=== PATIENT | male | born 1990 | race Caucasian/White ===

== ENCOUNTER 2018-05-08 08:26 | Observation (INO) | payer BC, OTHER, SELFPAY ==
[2018-05-08 09:29] LABS: Urine Blood NEGATIVE (NEG); Urine Glucose NEGATIVE (NEG); Urine Protein NEGATIVE (NEG)
[2018-05-08 09:38] LABS: Absolute Lymphocytes (CBC) 2.7 K/uL (0.7-4.9); Absolute Neutrophil 8.4 K/uL (1.8-8.0); Basophils % 0.3 % (0-1.3); Eosinophils % 1.6 % (0-4.4); Hematocrit 45.2 % (39.6-49.0); Lymphocytes % 21.9 % (15.3-44.8); MCH 29.9 pg (27.0-35.0); MCV 86.9 fL (80-100); MPV 8.5 fL (7.6-11.3); Monocytes % 8.4 % (3.3-12.3)
[2018-05-08] MEDS ORDERED: METHYLPREDNISOLONE 125 MG INJ ONE (09:47)
[2018-05-08 09:56] LABS: C-Reactive Protein 19.5 mg/L (<3.00); Potassium 4.1 mmol/L (3.5-5.1)
--- NOTE | 2018-05-08 10:50 | RAD REPORT ---
EXAM DESCRIPTION: RAD - Chest Single View - 05/08/2018 9:22 am CLINICAL HISTORY: Fever COMPARISON: None. TECHNIQUE: AP portable chest image was obtained 0918 hours . FINDINGS: Lungs are clear. Heart and vasculature are normal. No measurable pleural effusion and no p neumothorax. No acute bony abnormality seen. No acute aortic findings suspected. IMPRESSION: No acute cardiopulmonary process.
--- NOTE | 2018-05-08 11:10 | EDPHYS ---
Physician Documentation [facility] Name: Mervin Vance Age: 28 yrs Sex: Male : 1990 Arrival Date: 05/08/2018 Time: 08:29 Bed 15 Private MD: None, None ED Physician Mina Montez HPI: 05/08 10:20 This 28 yrs old Male presents to ER via Wheelchair with complaints of Rash. rn 10:20 The patient's rash thought to be caused by an unknown cause. The rash is located on the rn right hand, left hand and right leg. The rash can be described as flat, macular. Onset: The symptoms/episode began/occurred 2 day(s) ago. Severity of symptoms: At their worst the symptoms were moderate in the emergency department the symptoms are unchanged. The patient has not experienced similar symptoms in the past. Reports had sinus infection 2 weeks ago, last couple of days has had rash to palms and extremities that are flat, itchy, now having joint problems, hurts to move wrists, right knee. + low grade fever. No sob/cough anymore. . Historical: - Allergies: 08:31 No Known Allergies; aa5 - Home Meds: 08:31 None [Active]; aa5 - PMHx: 08:31 None; aa5 - PSHx: 08:31 None; aa5 - Immunization history:: Adult Immunizations up to date. - Social history:: Smoking status: Patient uses tobacco products, chewing tobacco. - Ebola Screening: : No symptoms or risks identified at this time. - Family history:: not pertinent. - Hospitalizations: : No recent hospitalization is reported. ROS: 10:20 Constitutional: + fever, no chills Eyes: Negative for injury, pain, redness, and rn perinatal, Cardiovascular: Negative for chest pain, palpitations, and edema, Respiratory: Negative for shortness of breath, cough, wheezing, and pleuritic chest pain, Abdomen/GI: Negative for abdominal pain, nausea, vomiting, diarrhea, and constipation, MS/Extremity: Negative for injury and deformity, Skin: + rash Neuro: Negative for headache, weakness, numbness, tingling, and seizure. Exam: 10:20 Constitutional: This is a well developed, well nourished patient who is awake, alert, rn and in no acute distress. Head/Face: Normocephalic, atraumatic. Eyes: Pupils equal round and reactive to light, extra-ocular motions intact. Lids and lashes normal. Conjunctiva and sclera are non-icteric and not injected. Cornea within normal limits. Periorbital areas with no swelling, redness, or edema. ENT: MMM, no stridor, no oral lesions Cardiovascular: Regular rate and rhythm with a normal S1 and S2. No gallops, murmurs, or rubs. Normal PMI, no JVD. No pulse deficits. Respiratory: Lungs have equal breath sounds bilaterally, clear to auscultation and percussion. No rales, rhonchi or wheezes noted. No increased work of breathing, no retractions or nasal flaring. Abdomen/GI: soft, non-tender Skin: + macular flat blanching rash on bilateral palms, + excoriations bilateral upper and lower extremities, no urticaria, no petechiae MS/ Extremity: + painful ROM bilateral wrists and right knee without effusions Neuro: Awake and alert, GCS 15, oriented to person, place, time, and situation. Cranial nerves II-XII grossly intact. Motor strength 5/5 in all extremities. Sensory grossly intact. Cerebellar exam normal. Normal gait. Vital Signs: 08:31 BP 141 / 93; Pulse 82; Resp 16 S; Temp 99.2(O); Pulse Ox 95% on R/A; Weight 124.74 kg aa5 (R); Height 6 ft. 0 in. (182.88 cm) (R); 10:11 BP 118 / 84; Pulse 72; Resp 14; Pulse Ox 97% ; bp 11:28 BP 93 / 67; Pulse 83; Resp 14; Pulse Ox 95% ; bp 12:59 BP 131 / 80; Pulse 78; Resp 14; Pulse Ox 97% ; bp 08:31 Body Mass Index 37.30 (124.74 kg, 182.88 cm) aa5 MDM: 08:41 Patient medically screened. rn 11:07 Differential diagnosis: polyarticular arthritis, septicemia, endocarditis, reactive rn arthritis. Data reviewed: vital signs, nurses notes, lab test result(s), radiologic studies, and as a result, I will admit patient. Counseling: I had a detailed discussion with the patient and/or guardian regarding: the historical points, exam findings, and any diagnostic results supporting the discharge/admit diagnosis, lab results, radiology results, the need for further work-up and treatment in the hospital. Admission orders: after a detailed discussion of the patient's condition and case, the admit orders are written by me. ED course: Unclear etiology of rash, most likely reactive polyarticular arthritis, will admit to rule out septicemia and f/u blood cultures. . 05/08 08:54 Order name: CBC with Diff rn 05/08 08:54 Order name: Basic Metabolic Panel rn 05/08 08:54 Order name: ESR rn 05/08 08:54 Order name: CRP rn 05/08 08:54 Order name: Procalcitonin rn 05/08 08:54 Order name: Flu rn 05/08 08:54 Order name: Strep; Complete Time: 10:19 rn 05/08 08:54 Order name: Blood Culture Adult (2) rn 05/08 08:55 Order name: CBC with Automated Diff; Complete Time: 10:19 ED[facility] 05/08 08:55 Order name: Basic Metabolic Panel; Complete Time: 10:19 ED[facility] 05/08 08:55 Order name: Sedimentation Rate, Westergren; Complete Time: 10:19 ED[facility] 05/08 08:55 Order name: C-Reactive Protein; Complete Time: 10:19 [facility] 05/08 08:55 Order name: Procalcitonin; Complete Time: 10:19 [facility] 05/08 08:55 Order name: Influenza Screen (A ; Complete Time: 10:19 ED[facility] 05/08 09:17 Order name: Urine Dipstick--Ancillary (enter results); Complete Time: 09:33 05/08 09:59 Order name: Throat Culture [facility] 05/08 11:37 Order name: GUME IFA Screen w/Reflex [facility] 05/08 11:38 Order name: Hepatitis Panel,Acute ED[facility] 05/08 11:38 Order name: Miscellaneous Test Lab [facility] 05/08 11:38 Order name: Rheumatoid Factor [facility] 05/08 11:38 Order name: T4 Free [facility] 05/08 11:38 Order name: Thyroid Stimulating Hormone [facility] 05/08 11:38 Order name: Urinalysis [facility] 05/08 11:38 Order name: CBC with Automated Diff [facility] 05/08 11:38 Order name: CBC with Automated Diff [facility] 05/08 11:38 Order name: CBC with Automated Diff [facility] 05/08 11:38 Order name: Comprehensive Metabolic Panel [facility] 05/08 11:38 Order name: Comprehensive Metabolic Panel [facility] 05/08 11:38 Order name: Comprehensive Metabolic Panel [facility] 05/08 11:38 Order name: Magnesium [facility] 05/08 08:54 Order name: IV Start; Complete Time: 09:35 rn 05/08 08:54 Order name: Urine Dipstick-Ancillary (obtain specimen); Complete Time: 09:35 rn 05/08 08:54 Order name: XRAY Chest (1 view); Complete Time: 10:51 rn 05/08 11:37 Order name: CONS Physician Consult ED[facility] 05/08 11:37 Order name: Regular [facility] 05/08 11:37 Order name: Echo with Doppler [facility] 05/08 11:38 Order name: Magnesium [facility] 05/08 11:38 Order name: Magnesium [facility] Administered Medications: 09:40 Drug: SOLU-Medrol 125 mg Route: IVP; Site: right forearm; bp 11:00 Follow up: Response: No adverse reaction; Marked relief of symptoms bp Disposition: 05/08/18 11:09 Hospitalization ordered by Massimo Coronado for Inpatient Admission. Preliminary diagnosis are Rash and other nonspecific skin eruption, Polyarticular arthralgia. - Bed requested for Telemetry/MedSurg (Inpatient). - Status is Inpatient Admission. bp - Condition is Stable. - Problem is new. - Symptoms have improved. UTI on Admission? No Signatures: Dispatcher [employer] [facility] Mina Montez MD MD rn Calderon, Audri RN RN aa5 Heriberto Dunn RN RN bp Siri Franco Corrections: (The following items were deleted from the chart) 11:44 11:38 Blood Culture ordered. [facility] 12:57 11:09 Hospitalization Ordered by Massimo Coronado DO for Inpatient Admission. Preliminary eb diagnosis is Rash and other nonspecific skin eruption; Polyarticular arthralgia. Bed requested for Telemetry/MedSurg (Inpatient). Status is Inpatient Admission. Condition is Stable. Problem is new. Symptoms have improved. UTI on Admission? No. rn 13:37 12:57 05/08/2018 11:09 Hospitalization Ordered by Massimo Coronado DO for Inpatient bp Admission. Preliminary diagnosis is Rash and other nonspecific skin eruption; Polyarticular arthralgia. Bed requested for Telemetry/MedSurg (Inpatient). Status is Inpatient Admission. Condition is Stable. Problem is new. Symptoms have improved. UTI on Admission? No. eb
--- NOTE | 2018-05-08 11:10 | ER ---
Nurse's Notes [facility] Name: Mervin Vance Age: 28 yrs Sex: Male : 1990 Arrival Date: 05/08/2018 Time: 08:29 Bed 15 Private MD: None, None Diagnosis: Rash and other nonspecific skin eruption;Polyarticular arthralgia Presentation: 05/08 08:30 Presenting complaint: Patient states: "I got this rash that started on my hands and aa5 feet about 2 days ago and now it's spreading". Pt states "all my joints are hurting". 08:30 Transition of care: patient was not received from another setting of care. Onset of aa5 symptoms was April 2018. Risk Assessment: Do you want to hurt yourself or someone else? Patient reports no desire to harm self or others. Initial Sepsis Screen: Does the patient meet any 2 criteria? No. Patient's initial sepsis screen is negative. Does the patient have a suspected source of infection? No. Patient's initial sepsis screen is negative. Care prior to arrival: None. 08:30 Method Of Arrival: Wheelchair aa5 08:30 Acuity: TAMMIE 3 aa5 Triage Assessment: 08:56 General: Appears in no apparent distress. comfortable, Behavior is calm, cooperative, bp appropriate for age. Pain: Complains of pain in GENERALIZED. Historical: - Allergies: 08:31 No Known Allergies; aa5 - Home Meds: 08:31 None [Active]; aa5 - PMHx: 08:31 None; aa5 - PSHx: 08:31 None; aa5 - Immunization history:: Adult Immunizations up to date. - Social history:: Smoking status: Patient uses tobacco products, chewing tobacco. - Ebola Screening: : No symptoms or risks identified at this time. - Family history:: not pertinent. - Hospitalizations: : No recent hospitalization is reported. Screenin:33 Abuse screen: Denies threats or abuse. Denies injuries from another. Nutritional bp screening: No deficits noted. Tuberculosis screening: No symptoms or risk factors identified. Fall Risk None identified. Assessment: 08:30 General: Appears in no apparent distress. uncomfortable, slender, Behavior is calm, bp cooperative, appropriate for age. Pain: Complains of pain in GENERALIZED. Neuro: Level of Consciousness is awake, alert, obeys commands, Oriented to person, place, time, situation, Appropriate for age. Cardiovascular: No deficits noted. Respiratory: Airway is patent Respiratory effort is even, unlabored, Respiratory pattern is regular, symmetrical. GI: No signs and/or symptoms were reported involving the gastrointestinal system. : No signs and/or symptoms were reported regarding the genitourinary system. EENT: No deficits noted. Derm: Rash noted that is macular, urticaria. Musculoskeletal: Circulation, motion, and sensation intact. Range of motion: intact in all extremities. Vital Signs: 08:31 BP 141 / 93; Pulse 82; Resp 16 S; Temp 99.2(O); Pulse Ox 95% on R/A; Weight 124.74 kg aa5 (R); Height 6 ft. 0 in. (182.88 cm) (R); 10:11 BP 118 / 84; Pulse 72; Resp 14; Pulse Ox 97% ; bp 11:28 BP 93 / 67; Pulse 83; Resp 14; Pulse Ox 95% ; bp 12:59 BP 131 / 80; Pulse 78; Resp 14; Pulse Ox 97% ; bp 08:31 Body Mass Index 37.30 (124.74 kg, 182.88 cm) aa5 ED Course: 08:29 Patient arrived in ED. mr 08:29 None, None is Private Physician. mr 08:29 Arm band placed on. aa5 08:36 Heriberto Dunn, BENITO is Primary Nurse. bp 08:41 Mina Montez MD is Attending Physician. rn 08:42 Triage completed. aa5 09:00 Inserted saline lock: 20 gauge in right forearm, using aseptic technique. Blood bp collected. 09:21 X-ray completed. Portable x-ray completed in exam room. Patient tolerated procedure ls3 well. 09:22 XRAY Chest (1 view) In Process Unspecified. EDMS 09:33 Patient has correct armband on for positive identification. Bed in low position. Call bp light in reach. Side rails up X2. Adult w/ patient. 11:08 Massimo Coronado DO is Hospitalizing Provider. rn 13:25 No provider procedures requiring assistance completed. Patient admitted, IV remains in bp place. Administered Medications: 09:40 Drug: SOLU-Medrol 125 mg Route: IVP; Site: right forearm; bp 11:00 Follow up: Response: No adverse reaction; Marked relief of symptoms bp Outcome: 11:09 Decision to Hospitalize by Provider. rn 13:24 Admitted to Tele accompanied by tech, family with patient, via wheelchair, room 420, bp with chart, Report called to DIMAS LUCIO 13:24 Condition: stable 13:24 Instructed on the need for admit. 13:37 Patient left the ED. bp Signatures: Dispatcher [employer] ANISH HillBecky Melida, MD MD benito Enriquez Audri, RN RN aa5 Heriberto Dunn RN RN bp Celina Dickey ls3
[2018-05-08] MEDS ORDERED: IBUPROFEN 400 MG TAB PO PRN (11:24)
[2018-05-08] MEDS ORDERED: ACETAMINOPHEN 500 MG TAB PO PRN (11:24)
[2018-05-08] MEDS ORDERED: ONDANSETRON 4 MG/2 ML VIAL IV PRN (11:24)
[2018-05-08] MEDS ORDERED: ALPRAZOLAM 0.25 MG TABLET PO PRN (11:24)
[2018-05-08] MEDS ORDERED: TRAMADOL HCL 50 MG TAB PO PRN (11:24)
[2018-05-08 12:37] LABS: Thyroid Stimulating Hormone 1.46 uIU/mL (0.360-3.740)
[2018-05-08] MEDS: KETOROLAC 30 MG/ML INJ IV PRN ×2 (14:02→21:59)
[2018-05-08] MEDS: NA CHLORIDE 0.9% 1,000 ML IV SCH ×2 (14:03→21:59)
[2018-05-08] MEDS: FAMOTIDINE 20 MG TAB PO SCH ×2 (14:03→20:24)
[2018-05-08] MEDS: CETIRIZINE HCL 5 MG TABLET PO SCH (14:03)
[2018-05-08 14:37] VITALS: BMI 32.6
--- NOTE | 2018-05-08 15:41 | P.HP ---
Certification for Inpatient Patient admitted to: Inpatient With expected LOS: >2 Midnights Patient will require the following post-hospital care: None Practitioner: I am a practitioner with admitting privileges, knowledge of patient current condition, hospital course, and medical plan of care. Services: Services provided to patient in accordance with Admission requirements found in Title 42 Section 412.3 of the Code of Federal Regulations Patient History Date of Service: 05/08/18 Primary Care Provider: None Reason for admission: Rash with joint pain History of Present Illness: 28-year-old male presented emergency room with a rash to his hands and polyarthritis. Patient reports last night having some joint pain to the left wrist region. He denied any chills, fever, nausea or vomiting. He denied any headaches, lightheadedness or chest pain. He had some mild shortness of breath especially with exertion. This morning he noted pain to multiple areas of joints including the right knee: left 5th digit and thumb; right 5th digit, thumb, and ring finger. Patient reports having a sinus infection about 2-3 weeks ago. He was given steroids and Augmentin. Patient reports no distant travel. He had gone [place] this past [place] and did some camping. In the ER patient was evaluated. Strep test negative. Influenza test negative. Chest x-ray unremarkable. Pro calcitonin negative. CRP elevated. White count 12.4, hemoglobin 1. Creatinine 1.1 with a GFR of 80. Blood cultures obtained. Patient admitted for further evaluation. When I saw the patient ER, he was not having any respiratory distress. Patient had a rash to his palms of his hands. He had some reactive erythema up on scratching to multiple areas. Allergies No Known Allergies Allergy (Unverified 05/08/18 12:05) Home medications list reviewed: Yes - Past Medical/Surgical History Has patient received pneumonia vaccine in the past: No Diabetic: No Past Medical History: Patient denies medical history Past Surgical History: Patient denies surgical history Psychosocial/ Personal History: Patient is . He has 1 child. 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 - Family History Father -: Heart disease, Diabetes - Social History Smoking Status: Former smoker Alcohol use: Yes CD- Drugs: No Caffeine use: Yes Place of Residence: Home Review of Systems General: As per HPI Eyes: Unremarkable ENT: Unremarkable Respiratory: Shortness of Breath, SOB with Excertion, As per HPI Cardiovascular: Unremarkable Gastrointestinal: Unremarkable Genitourinary: Unremarkable Musculoskeletal: Hand Pain, Leg Pain, As per HPI Integumentary: Rash, Unremarkable Neurological: Unremarkable Lymphatics: Unremarkable Physical Examination - Vital Signs Temperature: 98.0 F Blood Pressure: 137/74 Pulse: 90 Respirations: 18 Pulse Ox (%): 97 - Physical Exam General: Alert, In no apparent distress, Oriented x3, Cooperative HEENT: Atraumatic, Normocephalic, PERRLA, Mucous membr. moist/pink Neck: Supple, No Thyromegaly Respiratory: Clear to auscultation bilaterally, Normal air movement Cardiovascular: Normal pulses, Regular rate/rhythm Gastrointestinal: Normal bowel sounds, Soft and benign, Non-distended, No tenderness, No masses, No rebound, No guarding Musculoskeletal: Other (Slight swelling to the right knee with pain. Multiple joints of the hand with pain. Ant bites noted to the feet bilateral. No open sores noted.) Integumentary: Other (Reactive allergic rash noted throughout the body. No target lesions noted.) Neurological: Normal speech, Normal strength at 5/5 x4 extr, Normal tone, Normal affect - Studies Laboratory Data (last 24 hrs) 05/08/18 09:15: Sodium 138, Potassium 4.1, BUN 9, Creatinine 1.10, Glucose 110 H 05/08/18 09:15: WBC 12.4 H, Hgb 15.6, Hct 45.2, Plt Count 333 Microbiology Data (last 24 hrs): 05/08/18 09:15 Nasopharnyx Influenza Type A Antigen Screen - Final 05/08/18 09:15 Nasopharnyx Influenza Type B Antigen Screen - Final 05/08/18 09:15 Throat Group A Streptococcus Rapid Screen - Final Assessment and Plan - Plan Impression: Rash of unknown etiology likely viral with polyarthritis Shortness of breath Plan: Rash of unknown etiology. Patient given IV steroids in the emergency room. Will continue with steroid medication. Provide medication for itching. This includes Zyrtec and Pepcid. Will monitor closely. Blood cultures obtained. Will send for GUME and rheumatoid factor. Will hold off on antibiotics at this time. Case discussed with infectious disease. Await further recommendations from infectious disease. Will continue monitor closely. Will monitor shortness of breath closely. Will need to rule out bacteremia. Discharge Plan: Home Plan to discharge in: 48 Hours - Advance Directives Does patient have a Living Will: No Does patient have a Durable POA for Healthcare: No Time Spent Managing Pts Care (In Minutes): 55
[2018-05-08] MEDS ORDERED: INFLUENZA VACCINE (for 3y+) 0.5 ML DOSE IMVAC ONE (16:00)
[2018-05-08] MEDS ORDERED: ENOXAPARIN 40 MG/0.4 ML SQ SCH (17:00)
--- NOTE | 2018-05-08 17:51 | ECHO ---
HEIGHT: 6 ft 0 in WEIGHT: 241 lb 0 oz DATE OF STUDY: 05/08/[address]: 2-DIMENSIONAL: YES M.MODE: YES DOPPLER: YES COLOR FLOW: YES TDS: NO PORTABLE: NO DEFINITY: NO BUBBLE STUDY: NO DIAGNOSIS: RASH, POLYARTHRITIS, SHORTNESS OF BREATH CARDIAC HISTORY: CATHERIZATION: NO SURGERY: NO PROSTHETIC VALVE: NO PACEMAKER: NO MEASUREMENTS (cm) DIASTOLIC (NORMALS) SYSTOLIC (NORMALS) IVSd 1.3 (0.6-1.2) LA Diam 3.9 (1.9-4.0) LVEF 61% LVIDd 4.3 (3.5-5.7) LVIDs 2.9 (2.0-3.5) %FS 33% LVPWd 1.3 (0.6-1.2) Ao Diam 3.2 (2.0-3.7) 2 DIMENSIONAL ASSESSMENT: RIGHT ATRIUM: NORMAL LEFT ATRIUM: NORMAL RIGHT VENTRICLE: NORMAL LEFT VENTRICLE: NORMAL TRICUSPID VALVE: NORMAL MITRAL VALVE: NORMAL PULMONIC VALVE: NORMAL AORTIC VALVE: NORMAL PERICARDIAL EFFUSION: NONE AORTIC ROOT: NORMAL LEFT VENTRICULAR WALL MOTION: NORMAL DOPPLER/COLOR FLOW: PHYSIOLOGICAL TRICUSPID REGURGITATION. NORMAL RIGHT VENTRICULAR SYSTOLIC PRESSURE. COMMENTS: NORMAL 2D ECHOCARDIOGRAM WITH DOPPLER. TECHNOLOGIST: LADONNA KIRK RDCS
[2018-05-08] MEDS: predniSONE 20 MG TAB PO SCH (20:24)
--- NOTE | 2018-05-08 20:47 | CON ---
History Of Present Illness: This is a 28-year-old male coming in with rash on his hands and polyarth ritis involving specially wrist, knee, and ankle regions. The patient is feeling much better today. Denies any headache, nausea, vomiting, chest pain, abdominal pain, constipation, or diarrhea. The [place] recently went to a festival, where he was in the midst of thousands of people, the [facility]. The patient's strep is negative. Influenza test is negative. Chest x-ray is negative. Procalcitonin is negative. White blood cell count was elevated. The patient has been started on sup portive medications including ibuprofen, Pepcid, Zyrtec, no antibiotics. Past Medical History: No past medical history. Social History: Tobacco positive. Alcohol positive. Family History: Noncontributory. Medications: See MARS for medication. Allergies: NO KNOWN DRUG ALLERGIES. Review of Systems: A 10-point review was performed. Physical Examination: General: This is a 28-year-old male, sitting in bed, not in any acute cardiopulmonary distress. Vital signs: Temperature 98, pulse 90, respirations 18, blood pressure 137/74. HEENT: Unremarkable. Neck: Supple. Lungs: Clear to auscultation. Heart: S1, S2. Regular. Abdomen: Soft, nontender. Bowel sounds positive. Extremities: Right knee tenderness noted. Multiple areas of erythematous epidermal elevation noted with no discharge and no open wounds. Laboratory Data: Shows WBC 12,000, hemoglobin 15, platelets are 333. Chemistry shows sodium 138, po tassium 4.1, chloride 106, bicarb 24, BUN 9, creatinine 1.1, glucose is 110. Micro data; blood cultu res are pending. Influenza is negative. Strep is negative. Assessment And Plan: Most likely viral syndrome with polyarthritis and dermatitis, mild leukocytosis . We will suggest to monitor the patient for another 24 hours without any antibiotic. Continue supp ortive care and Benadryl and increase fluids. We will follow the patient as needed. Thank you Dr. Coronado for consult. NF/MODL Voice ID: [id number] Report ID: [id number]
[2018-05-08 21:36] LABS: Rheumatoid Factor NEG (NEG)
[2018-05-09 06:34] LABS: Absolute Lymphocytes (CBC) 2.2 K/uL (0.7-4.9); Absolute Monocytes 1.5 K/uL (0.1-1.3); Absolute Neutrophil 15.5 K/uL (1.8-8.0); Basophils % 0.1 % (0-1.3); Hematocrit 41.1 % (39.6-49.0); Lymphocytes % 11.3 % (15.3-44.8); MCH 30.5 pg (27.0-35.0); MCV 87.5 fL (80-100); MPV 8.6 fL (7.6-11.3); Monocytes % 7.8 % (3.3-12.3); RBC Red Blood Cell Count 4.69 M/uL (4.33-5.43)
[2018-05-09 06:57] LABS: Albumin 3.3 g/dL (3.4-5.0); Bilirubin Total 0.4 mg/dL (0.2-1.0); Magnesium 2.4 mg/dL (1.8-2.4); Potassium 4.3 mmol/L (3.5-5.1); Protein, Total 7.1 g/dL (6.4-8.2)
[2018-05-09] MEDS: NA CHLORIDE 0.9% 1,000 ML IV SCH (08:17)
[2018-05-09] MEDS: predniSONE 20 MG TAB PO SCH (08:18)
[2018-05-09] MEDS: FAMOTIDINE 20 MG TAB PO SCH (08:18)
[2018-05-09] MEDS: CETIRIZINE HCL 5 MG TABLET PO SCH (08:18)
[2018-05-09 09:01] VITALS: O2SAT 99
[2018-05-09 12:12] VITALS: BP 117/59; TEMP 97.9
--- NOTE | 2018-05-09 12:36 | P.PN ---
Subjective Date of Service: 05/09/18 Primary Care Provider: None Chief Complaint: Rash with joint pain Subjective: Improving (Patient improved. No significant pain to the joints. Rash resolved.) Physical Examination - Vital Signs Temperature: 97.9 F Blood Pressure: 117/59 Pulse: 80 Respirations: 18 Pulse Ox (%): 99 - Physical Exam General: Alert, In no apparent distress, Oriented x3, Cooperative HEENT: Atraumatic Neck: Supple Respiratory: Clear to auscultation bilaterally, Normal air movement Cardiovascular: Normal pulses, Regular rate/rhythm Gastrointestinal: Normal bowel sounds, Soft and benign, Non-distended, No tenderness, No masses, No rebound, No guarding Musculoskeletal: Other (Joint pains significantly improved.) Integumentary: Other (No rashes noted today.) Neurological: Normal speech, Normal strength at 5/5 x4 extr, Normal tone, Normal affect - Studies Microbiology Data (last 24 hrs): 05/08/18 09:15 Nasopharnyx Influenza Type A Antigen Screen - Final 05/08/18 09:15 Nasopharnyx Influenza Type B Antigen Screen - Final 05/08/18 09:15 Throat Group A Streptococcus Rapid Screen - Final Medications List Reviewed: Yes Assessment & Plan Discharge Plan: Home Plan to discharge in: 24 Hours Physician Review Additional Text: Impression: Rash of unknown etiology with polyarthritis likely viral versus inflammatory response Leukocytosis with noted Blood culture 1/2 positive for Gram positive rods, possible bacteremia Shortness of breath, resolved Plan: Patient significantly improved. Rash appears resolved. Patient seemed to after spotted well to oral steroids. Polyarthritis almost completely resolved. Case discussed with infectious disease yesterday. Suspect viral etiology with possible inflammatory response. Today white count elevated with 1/2 blood cultures positive for Gram positive rods. Will continue monitor closely. Await final results of blood cultures as the patient may have early bacteremia. Echocardiogram unremarkable, noted tricuspid regurgitation-physiologic. Shortness of breath resolved. Will consider discharge later today or tomorrow. Will continue to reassess. Time Spent Managing Pts Care (In Minutes): 55
--- NOTE | 2018-05-09 15:20 | P.DS ---
Admission Date: 05/08/18 Discharge Date: 05/09/18 Primary Care Provider: None Disposition: ROUTINE DISCHARGE Discharge Condition: GOOD Reason for Admission: Rash with joint pain Consultations: Infectious Disease:-Dr. Baires Procedures: Echocardiogram: Ejection fraction-61% LEFT VENTRICULAR WALL MOTION: NORMAL DOPPLER/COLOR FLOW: PHYSIOLOGICAL TRICUSPID REGURGITATION. NORMAL RIGHT VENTRICULAR SYSTOLIC PRESSURE. COMMENTS: NORMAL 2D ECHOCARDIOGRAM WITH DOPPLER. Medical problem list: Rash of unknown etiology with polyarthritis likely viral versus inflammatory response Leukocytosis with noted Blood culture 1/2 positive for Gram positive rods, likely a contaminant Shortness of breath, resolved Allergic rhinitis Obesity, BMI 32.7 Brief History of Present Illness: 28-year-old male presented emergency room with a rash to his hands and polyarthritis. Patient reports last night having some joint pain to the left wrist region. He denied any chills, fever, nausea or vomiting. He denied any headaches, lightheadedness or chest pain. He had some mild shortness of breath especially with exertion. This morning he noted pain to multiple areas of joints including the right knee: left 5th digit and thumb; right 5th digit, thumb, and ring finger. Patient reports having a sinus infection about 2-3 weeks ago. He was given steroids and Augmentin. Patient reports no distant travel. He had gone to the [employer] [place] this past weekend and did some camping. In the ER patient was evaluated. Strep test negative. Influenza test negative. Chest x-ray unremarkable. Pro calcitonin negative. CRP elevated. White count 12.4, hemoglobin 1. Creatinine 1.1 with a GFR of 80. Blood cultures obtained. Patient admitted for further evaluation. When I saw the patient ER, he was not having any respiratory distress. Patient had a rash to his palms of his hands. He had some reactive erythema up on scratching to multiple areas. Hospital Course: Patient presented with a rash of unknown etiology with polyarthritis. Patient was evaluated by infectious disease. Patient responded well to steroids and therapy. Blood culture positive 1/2. This is likely a contaminant. Patient has done well without any further abnormalities. Rash has resolved. Polyarthritis also resolved. Echocardiogram unremarkable. Rash and polyarthritis likely viral in nature. Inflammatory response also likely. Leukocytosis noted. Likely from steroids. Patient clinically stable. Patient will be discharged home. Patient will continue with prednisone 20 mg 1 pill twice daily for 5 days then 1 pill once daily for 5 days. Patient will continue with Zyrtec 10 mg 1 pill daily and Pepcid 20 mg 1 pill twice daily for 1 more month. Patient will need to establish care with a PCP to follow up this hospitalization. Patient will need a follow up on lab-hepatitis panel, GUME with his PCP. Patient likely has underlying her allergic rhinitis. Patient will continue with Zyrtec 10 mg daily. Patient with BMI 32.7. Lifestyle modification education will be provided. Vital Signs/Physical Exam: Temp Pulse Resp BP Pulse Ox 97.9 F 80 18 117/59 L 99 05/09/18 12:36 05/09/18 12:36 05/09/18 12:36 05/09/18 12:36 05/09/18 12:36 General: Alert, In no apparent distress, Oriented x3, Cooperative HEENT: Atraumatic Neck: Supple Respiratory: Clear to auscultation bilaterally, Normal air movement Cardiovascular: Normal pulses, Regular rate/rhythm Gastrointestinal: Normal bowel sounds, Soft and benign, Non-distended, No tenderness, No masses, No rebound, No guarding Musculoskeletal: No erythema, No tenderness, No warmth Integumentary: No tenderness/swelling, No erythema, No warmth, No cyanosis Neurological: Normal speech, Normal strength at 5/5 x4 extr, Normal tone, Normal affect Laboratory Data at Discharge: WBC 19.1 K/uL (4.3-10.9) H D 05/09/18 05:28 Hgb 14.3 g/dL (13.6-17.9) 05/09/18 05:28 Hct 41.1 % (39.6-49.0) 05/09/18 05:28 Plt Count 347 K/uL (152-406) 05/09/18 05:28 Sodium 140 mmol/L (136-145) 05/09/18 05:28 Potassium 4.3 mmol/L (3.5-5.1) 05/09/18 05:28 BUN 12 mg/dL (7-18) 05/09/18 05:28 Creatinine 1.10 mg/dL (0.55-1.3) 05/09/18 05:28 Glucose 112 mg/dL (74-106) H 05/09/18 05:28 Magnesium 2.4 mg/dL (1.8-2.4) 05/09/18 05:28 Total Bilirubin 0.4 mg/dL (0.2-1.0) 05/09/18 05:28 AST 15 U/L (15-37) 05/09/18 05:28 ALT 37 U/L (12-78) 05/09/18 05:28 Alkaline Phosphatase 67 U/L (45-117) 05/09/18 05:28 Home Medications: Cetirizine HCl [Zyrtec] 10 mg PO DAILY #30 tablet 05/09/18 RX: Famotidine [Pepcid*] 20 mg PO BID #60 tab 05/09/18 RX: predniSONE [Prednisone*] 20 mg PO SEECOM #15 tab 05/09/18 New Medications: Cetirizine HCl [Zyrtec] 10 mg PO DAILY #30 tablet RX: Famotidine [Pepcid*] 20 mg PO BID #60 tab RX: predniSONE [Prednisone*] 20 mg PO SEECOM #15 tab Patient Discharge Instructions: 1. Patient will need to follow up with a PCP to establish care and follow up this hospitalization. 2. Patient presented with a rash of unknown etiology with polyarthritis. Patient was evaluated by infectious disease. Patient responded well to steroids and therapy. Blood culture positive 1/. This is likely a contaminant. Patient has done well without any further abnormalities. Rash has resolved. Polyarthritis also resolved. Echocardiogram unremarkable. Rash and polyarthritis likely viral in nature. Inflammatory response also likely. Patient clinically stable. Patient will be discharged home. Patient will continue with prednisone 20 mg 1 pill twice daily for 5 days then 1 pill once daily for 5 days. Patient will continue with Zyrtec 10 mg 1 pill daily and Pepcid 20 mg 1 pill twice daily for 1 more month. Patient will need to establish care with a PCP to follow up this hospitalization. Patient will need a follow up on lab-hepatitis panel, GUME with his PCP. 3. Patient likely has underlying her allergic rhinitis. Patient will continue with Zyrtec 10 mg daily. 4. Lifestyle modification education will be provided. Diet: AHA Activity: Ad vanessa Time spent managing pt's care (in minutes): 55
[2018-05-10 18:29] LABS: HBsAG Nonreactive (Nonreactive); Hepatitis A IgM Antibody Nonreactive
== END 2018-05-09 17:18 | disposition home or self-care (01) ==
LOC: ER 08:26 → ERHOLD 11:21 → INTOOBSV 11:21 → 4TH 13:29
PROVIDERS: ADMIT Family Medicine; ATTEND Family Medicine
DX: R21 Rash and other nonspecific skin eruption (principal); M13.0 Polyarthritis, unspecified; D72.829 Elevated white blood cell count, unspecified; J30.9 Allergic rhinitis, unspecified; E66.9 Obesity, unspecified; Z68.32 Body mass index [BMI] 32.0-32.9, adult; Z87.891 Personal history of nicotine dependence
CPT/HCPCS: 36415; 71045; 80048; 80053; 80074; 81003; 83735; 84145; 84439; 84443; 85025; 85652; 86038; 86140; 86430; 87040; 87070; 87081; 87205; 87804; 93306; 96374; 99285; G0378; J1650; J2930; J7030; J7512

== ENCOUNTER 2018-05-10 13:07 | Observation (INO) | payer SELFPAY ==
[2018-05-10] MEDS ORDERED: KETOROLAC 30 MG/ML INJ ONE ×2 (14:32→14:50)
[2018-05-10] MEDS ORDERED: NA CHLORIDE 0.9% 1,000 ML ONE (14:55)
[2018-05-10 15:12] LABS: Protime INR 0.97
[2018-05-10 15:14] LABS: Absolute Lymphocytes (CBC) 1.2 K/uL (0.7-4.9); Absolute Monocytes 0.8 K/uL (0.1-1.3); Absolute Neutrophil 11.6 K/uL (1.8-8.0); Basophils % 0.1 % (0-1.3); Eosinophils % 0.4 % (0-4.4); Hematocrit 39.6 % (39.6-49.0); MCH 29.9 pg (27.0-35.0); MCV 88.1 fL (80-100); MPV 8.6 fL (7.6-11.3); Monocytes % 5.6 % (3.3-12.3); RBC Red Blood Cell Count 4.49 M/uL (4.33-5.43)
[2018-05-10] MEDS ORDERED: INSULIN -REGULAR HUMAN 50 UNIT/0.5 ML ML ONE (15:35)
[2018-05-10] MEDS ORDERED: D50W 25 GM/50 ML SYRINGE IV ONE (15:36)
[2018-05-10] MEDS ORDERED: SOD POLYSTYREN SUL 15 GM/60 ML UCUP ONE (15:36)
[2018-05-10 15:39] LABS: ALT/SGPT 42 U/L (12-78); AST/SGOT 17 U/L (15-37); Albumin 3.4 g/dL (3.4-5.0); Alkaline Phosphatase 62 U/L (45-117); BUN Blood Urea Nitrogen 13 mg/dL (7-18); Bicarbonate 26 mmol/L (21-32); Bilirubin Direct 0.1 mg/dL (0-0.2); Bilirubin Total 0.3 mg/dL (0.2-1.0); CKMB Creatine Kinase MB < 1.0 ng/mL (0.3-3.6); Creatine Phosphokinase 57 U/L (39-308); Glucose Level 151 mg/dL (74-106); Protein, Total 7.2 g/dL (6.4-8.2); Sodium Level 140 mmol/L (136-145); Troponin (Emerg Dept Use Only) < 0.02 ng/mL (0.0-0.045)
[2018-05-10] MEDS ORDERED: MORPHINE 4 MG/ML SYR ONE ×2 (15:52→17:24)
[2018-05-10 15:57] LABS: Urine Bacteria NONE SEEN /HPF (NONE SEEN); Urine Culture Reflex Order NOT NEEDED; Urine RBC NONE SEEN /HPF (NONE SEEN)
[2018-05-10] MEDS ORDERED: ONDANSETRON 4 MG/2 ML VIAL ONE (15:57)
[2018-05-10 16:24] LABS: Urine Blood NEGATIVE (NEG); Urine Glucose NEGATIVE (NEG); Urine Protein NEGATIVE (NEG); Urine pH 6.5 (5.0-7.0)
--- NOTE | 2018-05-10 17:05 | RAD REPORT ---
EXAM DESCRIPTION: CT - Abdomen Pelvis W Contrast - 05/10/2018 4:44 pm CLINICAL HISTORY: Abdominal pain/ right lower quadrant pain. COMPARISON: none. TECHNIQUE: Computed axial tomography of the abdomen pelvis was obtained. 100 cc Isovue-300 was admin istered intravenously. Oral contrast was not requested which limits evaluation of bowel. All CT scans are performed using dose optimization technique as appropriate and may include automated exposure control or mA/KV adjustment according to patient size. FINDINGS: The liver, spleen, pancreas, adrenal and kidneys appear unremarkable. There is no evidence of diverticulitis. The appendix is normal 1 IMPRESSION: No acute abnormality is displayed.
--- NOTE | 2018-05-10 17:07 | RAD REPORT ---
EXAM DESCRIPTION: RAD - Hip Right 2 View - 05/10/2018 4:35 pm CLINICAL HISTORY: Right hip pain FINDINGS: No fracture or dislocation is seen. No bone or joint abnormality
--- NOTE | 2018-05-10 17:07 | RAD REPORT ---
EXAM DESCRIPTION: RAD - Pelvis - 05/10/2018 4:34 pm CLINICAL HISTORY: Right hip pain FINDINGS: No fracture or dislocation is seen. No bone or joint abnormality
[2018-05-10] MEDS ORDERED: ONDANSETRON 4 MG/2 ML VIAL IV PRN (17:53)
[2018-05-10] MEDS ORDERED: ACETAMINOPHEN 500 MG TAB PO PRN (17:53)
--- NOTE | 2018-05-10 18:05 | P.HP ---
Certification for Inpatient Patient admitted to: Observation With expected LOS: <2 Midnights Patient will require the following post-hospital care: None Practitioner: I am a practitioner with admitting privileges, knowledge of patient current condition, hospital course, and medical plan of care. Services: Services provided to patient in accordance with Admission requirements found in Title 42 Section 412.3 of the Code of Federal Regulations Patient History Date of Service: 05/10/18 Primary Care Provider: Dr. Parker Reason for admission: RLQ abdominal pain, polyarthritis, myalgias History of Present Illness: 28 yo CM who was discharged yesterday after he was evaluated for a nonspecific rash and polyarthritis. He was seen by Infectious disease. His condition improved with steroids. Viral illness was suspected with inflammatory response. His polyarthritis to the hands, knee and feet resolved. His Procalcitonin, ESR were normal. His CXR and ECHO was also normal. UA was normal as well. Rheumatoid factor was also normal. He desired to go home yesterday while waiting on blood culture which was positive but thought to have been a contaminant. His symptoms have resolved. He was sent home with Prednisone, Zyrtec and Pepcid. Today he reported RLQ abdominal pain with radiation of pain to the right groin region. He also reported some myalgias mainly to the right thigh. He has some mild pain to the joints of the hands. No fever, chills, nausea or vomiting was noted. No diarrhea or constipation was noted. No SOB or chest pain. He was evaluated in the ER which included CT scan of the AB/Pelvis, x-rays of the Hip and Pelvis. All were normal. His WBC count was improved from his recent hospitalization. His ESR was increased from before. His CRP improved. Due to the unusual symptoms, he will be admitted for further evaluation. Allergies No Known Allergies Allergy (Unverified 05/08/18 12:05) Home medications list reviewed: Yes Home Medications: Cetirizine HCl [Zyrtec] 10 mg PO DAILY #30 tablet 05/09/18 Famotidine [Pepcid*] 20 mg PO BID #60 tab 05/09/18 predniSONE [Prednisone*] 20 mg PO SEECOM #15 tab 05/09/18 - Past Medical/Surgical History Diabetic: No -: GERD -: Allergic rhinitis -: Genital warts -: Obesity Past Surgical History: Patient denies surgical history Psychosocial/ Personal History: Patient is . He has 1 child. 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 - Family History Father -: Heart disease, Diabetes - Social History Smoking Status: Never smoker Alcohol use: Yes CD- Drugs: No Caffeine use: Yes Place of Residence: Home Review of Systems General: Weakness, Malaise, As per HPI Eyes: Unremarkable ENT: Unremarkable Respiratory: Unremarkable Cardiovascular: Unremarkable Gastrointestinal: Abdominal Pain, As per HPI Genitourinary: Unremarkable Musculoskeletal: Hand Pain, Leg Pain, As per HPI Integumentary: Unremarkable Neurological: Weakness, As per HPI Lymphatics: Unremarkable Physical Examination - Physical Exam General: Alert, In no apparent distress, Oriented x3, Cooperative HEENT: Atraumatic, Normocephalic, PERRLA, Mucous membr. moist/pink, EOMI Neck: Supple, No Thyromegaly, Without JVD or thyroid abnormality Respiratory: Clear to auscultation bilaterally, Normal air movement Cardiovascular: Normal pulses, Regular rate/rhythm Gastrointestinal: Normal bowel sounds, Soft and benign, Non-distended, No masses , No rebound, No guarding, Tenderness (Pain to deep palpation to the RLQ. ) Musculoskeletal: No warmth, Other (Pain with motion of the hip with external rotation) Integumentary: No rashes, Other (There is a genital wart noted to the pelvic region. No target lesions. No dermatographia that he had in his prior admission. ) Neurological: Normal speech, Normal strength at 5/5 x4 extr, Normal tone, Normal affect External genitalia: No edema, Other (Genital wart noted. ) - Studies Laboratory Data (last 24 hrs) 05/10/18 14:38: PT 11.5, INR 0.97, APTT 30.3 05/10/18 14:38: WBC 13.6 H D, Hgb 13.4 L, Hct 39.6, Plt Count 339 05/10/18 14:38: Sodium 140, Potassium 4.0, BUN 13, Creatinine 1.20, Glucose 151 H, Total Bilirubin 0.3, AST 17, ALT 42, Alkaline Phosphatase 62 Assessment and Plan - Plan Impression: Right lower quadrant abdominal pain Right thigh myalgia Migrating polyarthritis Genital wart Recent blood culture positive 1/2 for gram positive rods Elevated ESR and CRP Obesity GERD Plan: Patient will be admitted for closely monitoring. Await blood cultures results. Will repeat blood cultures. Will sent urine for culture and for GC/Chlamydia. Will send for Lyme Antibody. Will start IV Doxycycline. Will continue with Prednisone, Zyrtec and Pepcid. Will provide medication for pain. Will start IV fluids. Will consult Surgery to further assess Abdominal pain and myalgias. Etiology of findings unknown. Recheck lab. Will discuss with Infectious disease again and Surgery. Genital wart can be addressed as outpatient with Dermatology or Urology. Discharge Plan: Home Plan to discharge in: 48 Hours - Advance Directives Does patient have a Living Will: No Does patient have a Durable POA for Healthcare: No - Code Status/Comfort Care Code Status Assessed: Yes (Patient is full code) Time Spent Managing Pts Care (In Minutes): 55
--- NOTE | 2018-05-10 18:05 | ER ---
Nurse's Notes [facility] Name: Mervin Vance Age: 28 yrs Sex: Male : 1990 Arrival Date: 05/10/2018 Time: 13:10 Bed 7 Private MD: None, None Diagnosis: Lower abdominal pain, unspecified-Intractable Presentation: 05/10 13:16 Presenting complaint: Patient states: I had joint pain, fever, and rash 3 days ago, was la1 admitted, felt better went home, and woke up today with much joint pain. Transition of care: patient was not received from another setting of care. Onset of symptoms was May 10, 2018. Risk Assessment: Do you want to hurt yourself or someone else? Patient reports no desire to harm self or others. Initial Sepsis Screen: Does the patient meet any 2 criteria? No. Patient's initial sepsis screen is negative. Does the patient have a suspected source of infection? No. Patient's initial sepsis screen is negative. Care prior to arrival: None. 13:16 Method Of Arrival: Ambulatory la1 13:16 Acuity: TAMMIE 3 la1 Historical: - Allergies: 13:17 No Known Allergies; la1 - Home Meds: 13:17 None [Active]; la1 - PMHx: 13:17 None; la1 - PSHx: 13:17 None; la1 - Immunization history:: Adult Immunizations up to date. - Social history:: Smoking status: Patient/guardian denies using tobacco. - Ebola Screening: : No symptoms or risks identified at this time. Screenin:55 Abuse screen: Denies threats or abuse. Denies injuries from another. Nutritional ph screening: No deficits noted. Tuberculosis screening: No symptoms or risk factors identified. Fall Risk None identified. Assessment: 14:00 General: Appears in no apparent distress. uncomfortable, well groomed, Behavior is ph calm, cooperative, appropriate for age, Denies fever. Pain: Complains of pain in joints of R arm and hand, joints of L arm and hand, and R hip. Neuro: Level of Consciousness is awake, alert, obeys commands, Oriented to person, place, time, situation. 14:00 Cardiovascular: Denies chest pain, nausea, shortness of breath, Capillary refill < 3 ph seconds in bilateral fingers Patient's skin is warm and dry. Respiratory: Airway is patent Respiratory effort is even, unlabored, Respiratory pattern is regular, symmetrical, Denies cough, shortness of breath. GI: No signs and/or symptoms were reported involving the gastrointestinal system. Derm: Skin is intact, is healthy with good turgor, Skin is pink, warm \T\ dry. Musculoskeletal: Circulation, motion, and sensation intact. Range of motion: intact in all extremities. 14:55 Reassessment: Patient appears in no apparent distress at this time. Patient and/or ph family updated on plan of care and expected duration. Pain level reassessed. Patient is alert, oriented x 3, equal unlabored respirations, skin warm/dry/pink. Pt taken to radiology via wheelchair. 16:00 Reassessment: Patient appears in no apparent distress at this time. Patient and/or ph family updated on plan of care and expected duration. Pain level reassessed. Patient is alert, oriented x 3, equal unlabored respirations, skin warm/dry/pink. Pt returned from radiology, states that pain has not improved after pain meds, ERP notified, see MAR. 17:30 Reassessment: Patient appears in no apparent distress at this time. Patient and/or ph family updated on plan of care and expected duration. Pain level reassessed. Patient is alert, oriented x 3, equal unlabored respirations, skin warm/dry/pink. Pt reports that pain has not improved after IV morphine, ERP notified, see MAR. 18:30 Reassessment: Patient appears in no apparent distress at this time. Patient and/or ph family updated on plan of care and expected duration. Pain level reassessed. Patient is alert, oriented x 3, equal unlabored respirations, skin warm/dry/pink. Pt resting quietly at this time, continues to c/o pain and stiffness in joints, VSS, awaiting room assignment. 19:10 General: Appears in no apparent distress. uncomfortable, well groomed, Behavior is rr5 calm, cooperative, appropriate for age. 19:10 Pain: Complains of pain in right arm joint area Pain does not radiate. Pain currently rr5 is 8 out of 10 on a pain scale. Quality of pain is described as aching, Pain began 2-3 days ago. Is intermittent. Neuro: Level of Consciousness is awake, alert, obeys commands, Oriented to person, place, time, situation. Cardiovascular: Denies chest pain, nausea, shortness of breath, Capillary refill < 3 seconds Patient's skin is warm and dry. Respiratory: Airway is patent Respiratory effort is even, unlabored, Respiratory pattern is regular, symmetrical. GI: No signs and/or symptoms were reported involving the gastrointestinal system. : No signs and/or symptoms were reported regarding the genitourinary system. EENT: No signs and/or symptoms were reported regarding the EENT system. Derm: Skin is intact, is healthy with good turgor, Skin is pink, warm \T\ dry. Musculoskeletal: Circulation, motion, and sensation intact. Range of motion: intact in all extremities. Vital Signs: 13:17 BP 157 / 122; Pulse 90; Resp 16; Temp 97.6(TE); Pulse Ox 98% on R/A; Weight 109.32 kg; la1 Height 6 ft. 0 in. (182.88 cm); 15:00 BP 121 / 71; Pulse 74; Resp 18; Pulse Ox 99% on R/A; Pain 8/10; ph 16:00 BP 125 / 77; Pulse 69; Resp 16; Pulse Ox 97% on R/A; ph 17:00 BP 116 / 71; Pulse 64; Resp 18; Pulse Ox 97% on R/A; Pain 8/10; ph 17:42 BP 113 / 64; Pulse 60; Resp 18; Pulse Ox 98% on R/A; ph 18:49 BP 119 / 68; Pulse 66; Resp 18; Pulse Ox 98% on R/A; ph 19:02 BP 128 / 79; Pulse 60; Resp 18; Pulse Ox 99% on R/A; ea 13:17 Body Mass Index 32.69 (109.32 kg, 182.88 cm) la1 ED Course: 13:10 Patient arrived in ED. sb2 13:11 None, None is Private Physician. sb2 13:17 Triage completed. la1 13:17 Arm band placed on left wrist. la1 13:43 Veronica Zee, KHADIJAH is Primary Nurse. ph 14:00 Juan A Rudd PA is PHCP. cp 14:00 Santo De La Rosa MD is Attending Physician. cp 14:26 Inserted saline lock: 20 gauge in right antecubital area, using aseptic technique. dh3 14:38 Initial lab(s) drawn, by me, sent to lab. dh3 14:53 First set of blood cultures drawn by me, by venipuncture 23G to left forearm. dh3 14:55 Patient has correct armband on for positive identification. Placed in gown. Bed in low ph position. Call light in reach. Side rails up X 1. Pulse ox on. NIBP on. Warm blanket given. 15:20 EKG done, by ED staff, reviewed by Juan A HENLEY. dh3 15:24 Second set of blood cultures drawn by me, by venipuncture 23G to left hand. dh3 15:46 Urine collected: clean catch specimen, clear. dh3 16:35 Pelvis XRAY In Process Unspecified. EDMS 16:35 XRAY Hip RIGHT 2 view In Process Unspecified. EDMS 16:40 CT completed. Patient moved to CT via wheelchair. Patient moved back from CT. cw1 16:45 CT Abd/Pelvis - W/Contrast In Process Unspecified. EDMS 18:03 Massimo Coronado DO is Hospitalizing Provider. cp 18:49 No provider procedures requiring assistance completed. Patient admitted, IV remains in ph place. 18:56 add on labs drawn by me and sent to lab. dh3 19:20 Inserted saline lock: Patient admitted, IV remains in place. intact. rr5 Administered Medications: 14:28 Drug: TORadol 30 mg Route: IVP; Site: right antecubital; hb 15:00 Follow up: Response: No adverse reaction; Pain is unchanged, physician notified ph 15:15 Drug: NS 0.9% 1000 ml Route: IV; Rate: 1 bolus; Site: right antecubital; ph 18:59 Follow up: Response: No adverse reaction; IV Status: Completed infusion ph 17:06 Drug: morphine 4 mg Route: IVP; Site: left antecubital; ph 17:30 Follow up: Response: No adverse reaction; Pain is unchanged, physician notified ph 17:29 Drug: morphine 4 mg Route: IVP; Site: right antecubital; ph 18:39 Follow up: Response: No adverse reaction; Pain is unchanged, physician notified ph Outcome: 18:04 Decision to Hospitalize by Provider. cp 19:19 Admitted to Med/surg family with patient, via wheelchair. rr5 19:19 Condition: stable 19:19 Instructed on the need for admit. 19:33 Admitted to Med/surg family with patient, via wheelchair, Report called to roxie LUCIO rr5 19:47 Patient left the ED. rr5 Signatures: Dispatcher [employer] EDRadha Kaba cw1 [place], RN RN [email or web address] Veronica Zee RN RN ph Juan A Rudd PA PA cp Baxter, Heather, RN KHADIJAH [facility] Roxie Aguilar RN RN ea [place], Sheri [facility] Narendra Roberts RN RN rr5 Corrections: (The following items were deleted from the chart) 17:30 17:29 morphine 4 mg IVP in left antecubital ph ph 19:44 19:33 Admitted to Med/surg family with patient, via stretcher, Report called to roxie yee RN rr5 19:45 19:19 Admitted to Med/surg family with patient, via stretcher, rr5 rr5
--- NOTE | 2018-05-10 18:05 | EDPHYS ---
Physician Documentation [facility] Name: Mervin Vance Age: 28 yrs Sex: Male : 1990 Arrival Date: 05/10/2018 Time: 13:10 Bed 7 Private MD: None, None ED Physician Santo De La Rosa HPI: 05/10 14:27 This 28 yrs old Male presents to ER via Ambulatory with complaints of JOINT cp PAIN. 14:28 The patient or guardian reports pain. sustained from unknown reason, There is no cp obvious deformity, The patient is able to ambulate with assistance. Patient is not able to bear weight. The complaints affect the right hip. Onset: The symptoms/episode began/occurred this morning. 14:28 Associated signs and symptoms: Pertinent positives: abdominal pain, Pertinent cp negatives: chest pain, diarrhea, dysuria, fever, vomiting. 14:28 The patient has been recently been admitted at [facility], was cp discharged earlier this week, for multiple joint pain, rash. Historical: - Allergies: 13:17 No Known Allergies; la1 - Home Meds: 13:17 None [Active]; la1 - PMHx: 13:17 None; la1 - PSHx: 13:17 None; la1 - Immunization history:: Adult Immunizations up to date. - Social history:: Smoking status: Patient/guardian denies using tobacco. - Ebola Screening: : No symptoms or risks identified at this time. ROS: 14:35 Constitutional: Negative for body aches, chills, fever, poor PO intake. cp 14:35 Eyes: Negative for injury, pain, redness, and discharge. cp 14:35 ENT: Negative for drainage from ear(s), ear pain, sore throat, difficulty swallowing, difficulty handling secretions. 14:35 Cardiovascular: Negative for chest pain, edema, palpitations. 14:35 Respiratory: Negative for cough, shortness of breath, wheezing. 14:35 Abdomen/GI: Positive for abdominal pain, of the right lower quadrant, Negative for vomiting, diarrhea, constipation. 14:35 Back: Negative for pain at rest, pain with movement, radiated pain. 14:35 : Negative for urinary symptoms, testicular pain 14:35 MS/extremity: Positive for decreased range of motion, pain, tenderness, of the right hip, Negative for injury or acute deformity, paresthesias. 14:35 Skin: Negative for cellulitis, rash. 14:35 Neuro: Negative for altered mental status, headache, weakness. 14:35 All other systems are negative. Exam: 14:40 Constitutional: The patient appears in no acute distress, alert, awake, cp non-diaphoretic, non-toxic, well developed, well nourished, uncomfortable. 14:40 Head/Face: Normocephalic, atraumatic. cp 14:40 Eyes: Periorbital structures: appear normal, Pupils: equal, round, and reactive to light and accomodation, Extraocular movements: intact throughout, Conjunctiva: normal, no exudate, no injection, Sclera: no appreciated abnormality, Lids and lashes: appear normal, bilaterally. 14:40 ENT: External ear(s): are unremarkable, Ear canal(s): are normal, clear, TM's: bulging, is not appreciated, bilaterally, dullness, bilaterally, erythema, is not appreciated, bilaterally, Nose: is normal, Mouth: Lips: moist, Oral mucosa: pink and intact, moist, Posterior pharynx: is normal, airway is patent, no erythema, no exudate. 14:40 Neck: ROM/movement: is normal, is supple, without pain, no range of motions limitations, no meningismus, no nuchal rigidity. 14:40 Chest/axilla: Inspection: normal, Palpation: is normal, no crepitus, no tenderness. 14:40 Cardiovascular: Rate: normal, Rhythm: regular, Heart sounds: murmur, not appreciated, Edema: is not appreciated. 14:40 Respiratory: the patient does not display signs of respiratory distress, Respirations: normal, no use of accessory muscles, no retractions, no splinting, no tachypnea, labored breathing, is not present, Breath sounds: are clear throughout, no decreased breath sounds, no stridor, no wheezing. 14:40 Abdomen/GI: Inspection: abdomen appears normal, Bowel sounds: active, all quadrants, Palpation: soft, in all quadrants, moderate abdominal tenderness, in the right lower quadrant, rebound tenderness, is not appreciated, involuntary guarding, is not appreciated. 14:40 Back: pain, is absent, ROM is normal. 14:40 Musculoskeletal/extremity: Extremities: grossly normal except: noted in the right hip: decreased ROM, pain, tenderness, There is no evidence of deformity, ROM: limited passive range of motion due to pain, in the right hip. 14:40 Skin: cellulitis, is not appreciated, no rash present. 14:40 Neuro: Orientation: to person, place \T\ time. Mentation: is normal, Cerebellar function: is grossly normal, Motor: moves all fours, strength is normal, Sensation: is normal. 15:20 ECG was reviewed by the Attending Physician. cp Vital Signs: 13:17 BP 157 / 122; Pulse 90; Resp 16; Temp 97.6(TE); Pulse Ox 98% on R/A; Weight 109.32 kg; la1 Height 6 ft. 0 in. (182.88 cm); 15:00 BP 121 / 71; Pulse 74; Resp 18; Pulse Ox 99% on R/A; Pain 8/10; ph 16:00 BP 125 / 77; Pulse 69; Resp 16; Pulse Ox 97% on R/A; ph 17:00 BP 116 / 71; Pulse 64; Resp 18; Pulse Ox 97% on R/A; Pain 8/10; ph 17:42 BP 113 / 64; Pulse 60; Resp 18; Pulse Ox 98% on R/A; ph 18:49 BP 119 / 68; Pulse 66; Resp 18; Pulse Ox 98% on R/A; ph 19:02 BP 128 / 79; Pulse 60; Resp 18; Pulse Ox 99% on R/A; ea 13:17 Body Mass Index 32.69 (109.32 kg, 182.88 cm) la1 MDM: 14:00 Patient medically screened. cp 15:00 Differential diagnosis: intertrochanteric fracture, femoral neck fracture, femoral cp shaft fracture, bursitis, strain, septic joint, appendicitis. 17:15 Data reviewed: vital signs, nurses notes, lab test result(s), EKG, radiologic studies, cp CT scan, plain films, I have discussed the patient's presentation/case with the attending Emergency Department Physician;. 17:15 Test interpretation: by ED physician or midlevel provider: ECG, plain radiologic cp studies. Response to treatment: the patient's symptoms have mildly improved after treatment. 05/10 14:25 Order name: Troponin (emerg Dept Use Only); Complete Time: 16:16 cp 05/10 14:25 Order name: C-Reactive Protein; Complete Time: 16:16 cp 05/10 14:25 Order name: Sed Rate; Complete Time: 16:16 cp 05/10 17:47 Interpretation: Abnormal: SED 22. cp 05/10 14:25 Order name: Basic Metabolic Panel; Complete Time: 16:16 cp 05/10 17:48 Interpretation: Normal except: GLUC 151; GFR 73. cp 05/10 14:25 Order name: Blood Culture Adult (2) cp 05/10 14:25 Order name: CBC with Diff; Complete Time: 16:16 cp 05/10 17:13 Interpretation: Normal except: WBC 13.6; HGB 13.4; HAZEL% 84.9; LYM% 9.0; NEUT A 11.6. 05/10 14:25 Order name: Ckmb; Complete Time: 16:16 cp 05/10 14:25 Order name: CPK; Complete Time: 16:16 cp 05/10 14:25 Order name: Lactate; Complete Time: 16:16 cp 05/10 14:25 Order name: LFT's; Complete Time: 16:16 cp 05/10 14:25 Order name: Procalcitonin; Complete Time: 16:16 cp 05/10 14:25 Order name: Protime (+inr); Complete Time: 16:16 cp 05/10 14:25 Order name: Ptt, Activated; Complete Time: 16:16 cp 05/10 14:25 Order name: Urine Microscopic Only; Complete Time: 16:16 cp 05/10 14:15 Order name: Pelvis XRAY; Complete Time: 17:12 cp 05/10 14:15 Order name: XRAY Hip RIGHT 2 view; Complete Time: 17:12 cp 05/10 15:52 Order name: Urine Dipstick--Ancillary (enter results); Complete Time: 16:25 em1 05/10 16:18 Order name: CT Abd/Pelvis - W/Contrast; Complete Time: 17:12 cp 05/10 17:58 Order name: Urinalysis EDSD 05/10 17:58 Order name: CBC with Automated Diff EDSD 05/10 17:58 Order name: CBC with Automated Diff; Complete Time: 16:22 EDSD 05/10 17:58 Order name: Comprehensive Metabolic Panel EDSD 05/10 17:58 Order name: Comprehensive Metabolic Panel; Complete Time: 16:22 EDSD 05/10 17:58 Order name: Magnesium [facility] 05/10 17:58 Order name: Magnesium; Complete Time: 16:22 [facility] 05/10 17:59 Order name: Urine Drug Screen; Complete Time: 16:22 [facility] 05/10 17:59 Order name: Lyme Ab Reflex IgM,IgG [facility] 05/10 17:59 Order name: Urine Culture [facility] 05/10 19:30 Order name: Gibson Screen; Complete Time: 16:22 [facility] 05/10 14:16 Order name: IV; Complete Time: 14:54 cp 05/10 14:25 Order name: Accucheck; Complete Time: 14:54 cp 05/10 14:25 Order name: Cardiac monitoring; Complete Time: 14:54 cp 05/10 14:25 Order name: EKG - Nurse/Tech; Complete Time: 15:23 cp 05/10 14:25 Order name: IV Saline Lock - Large Bore; Complete Time: 14:54 cp 05/10 14:25 Order name: Labs collected and sent; Complete Time: 14:54 cp 05/10 14:25 Order name: O2 Per Protocol; Complete Time: 14:54 cp 05/10 14:25 Order name: O2 Sat Monitoring; Complete Time: 14:54 cp 05/10 14:25 Order name: Urine Dipstick-Ancillary (obtain specimen); Complete Time: 15:46 cp 05/10 17:58 Order name: CONS Physician Consult [facility] 05/10 17:58 Order name: Regular [facility] EC:20 Rate is 75 beats/min. Rhythm is regular. WI interval is normal. QRS interval is normal. cp QT interval is normal. Interpreted by me. Reviewed by me. Administered Medications: 14:28 Drug: TORadol 30 mg Route: IVP; Site: right antecubital; hb 15:00 Follow up: Response: No adverse reaction; Pain is unchanged, physician notified ph 15:15 Drug: NS 0.9% 1000 ml Route: IV; Rate: 1 bolus; Site: right antecubital; ph 18:59 Follow up: Response: No adverse reaction; IV Status: Completed infusion ph 17:06 Drug: morphine 4 mg Route: IVP; Site: left antecubital; ph 17:30 Follow up: Response: No adverse reaction; Pain is unchanged, physician notified ph 17:29 Drug: morphine 4 mg Route: IVP; Site: right antecubital; ph 18:39 Follow up: Response: No adverse reaction; Pain is unchanged, physician notified ph Disposition: 05/11 10:43 Co-signature as Attending Physician, Santo De La Rosa MD I agree with the assessment and kdr plan of care. Disposition: 05/10/18 18:04 Hospitalization ordered by Massimo Coronado for Observation. Preliminary diagnosis is Lower abdominal pain, unspecified - Intractable. - Bed requested for Telemetry/MedSurg (observation). - Status is Observation. rr5 - Condition is Stable. - Problem is new. - Symptoms have improved. UTI on Admission? No Signatures: Dispatcher [employer] EDMS Danya Colin, RN Nithya Saenz RN RN Santo Kidd MD MD [facility] [place] RN RN la1 Veronica Zee RN KHADIJAH ph Blaire, Juan A, PA PA Kimberly Zhang RN RN hb Roque, Raymond RN RN rr5 Corrections: (The following items were deleted from the chart) 05/10 18:46 18:04 Hospitalization Ordered by Massimo Coronado DO for Observation. Preliminary diagnosis is Lower abdominal pain, unspecified - Intractable. Bed requested for Telemetry/MedSurg (observation). Status is Observation. Condition is Stable. Problem is new. Symptoms have improved. UTI on Admission? No. cp 19:24 18:46 05/10/2018 18:04 Hospitalization Ordered by Massimo Coronado DO for Observation. kl Preliminary diagnosis is Lower abdominal pain, unspecified - Intractable. Bed requested for Telemetry/MedSurg (observation). Status is Observation. Condition is Stable. Problem is new. Symptoms have improved. UTI on Admission? No. dw 19:47 19:24 05/10/2018 18:04 Hospitalization Ordered by Massimo Coronado DO for Observation. rr5 Preliminary diagnosis is Lower abdominal pain, unspecified - Intractable. Bed requested for Telemetry/MedSurg (observation). Status is Observation. Condition is Stable. Problem is new. Symptoms have improved. UTI on Admission? No. kl
[2018-05-10] MEDS ORDERED: DOXYCYCLINE 100 MG in NA CHLORIDE 0.9% 100 ML IVPB SCH (21:00)
[2018-05-10] MEDS: NA CHLORIDE 0.9% 1,000 ML IV SCH (21:04)
[2018-05-10] MEDS: HYDROCODONE/APAP 7.5/325 MG TAB PO PRN (21:05)
[2018-05-10] MEDS: ENOXAPARIN 40 MG/0.4 ML SQ SCH (21:05)
[2018-05-10] MEDS: FAMOTIDINE 20 MG TAB PO SCH (21:05)
[2018-05-10] MEDS ORDERED: ZOLPIDEM TARTRATE 10 MG TABLET PO ONE (21:45)
[2018-05-10] MEDS ORDERED: NA CHLORIDE 0.9% 100 ML ONE (21:52)
[2018-05-10] MEDS ORDERED: DOXYCYCLINE HYCLATE 100MG INJ ONE (21:52)
[2018-05-10 21:58] LABS: Barbiturates NEGATIVE (NEGATIVE); Benzodiazepines NEGATIVE (NEGATIVE); Cocaine POSITIVE (NEGATIVE); METHAMPHETAM NEGATIVE (NEGATIVE); Methadone NEGATIVE (NEGATIVE); Opiates POSITIVE (NEGATIVE); Phencyclidine NEGATIVE (NEGATIVE); THC Cannibis POSITIVE (NEGATIVE)
[2018-05-10] MEDS ORDERED: ZOLPIDEM TARTRATE 5 MG TABLET PO ONE (22:00)
[2018-05-10 22:13] VITALS: BMI 32.1
[2018-05-11] MEDS: NA CHLORIDE 0.9% 1,000 ML IV SCH (01:22)
[2018-05-11] MEDS: HYDROCODONE/APAP 7.5/325 MG TAB PO PRN ×2 (03:47→09:25)
[2018-05-11 05:01] LABS: Absolute Monocytes 1.5 K/uL (0.1-1.3); Absolute Neutrophil 6.4 K/uL (1.8-8.0); Basophils % 0.2 % (0-1.3); Eosinophils % 2.6 % (0-4.4); Lymphocytes % 37.8 % (15.3-44.8); MCH 29.7 pg (27.0-35.0); MCV 88.1 fL (80-100); MPV 8.5 fL (7.6-11.3)
[2018-05-11 05:17] LABS: Albumin 2.9 g/dL (3.4-5.0); Bilirubin Total 0.2 mg/dL (0.2-1.0); Magnesium 2.2 mg/dL (1.8-2.4); Protein, Total 6.3 g/dL (6.4-8.2)
--- NOTE | 2018-05-11 06:07 | EKG ---
Test Date: 2018-05-10 Test Time: 15:13:20 Ciso: KAY MEASUREMENT RESULTS: Intervals: Rate: 75 DC: 138 QRSD: 100 QT: 358 QTc: 399 [place]: P: 61 DC: 138 QRS: 41 T: 50 INTERPRETIVE STATEMENTS: Normal sinus rhythm RSR' or QR pattern in V1 suggests right ventricular conduction delay Borderline ECG No previous ECG available for comparison Electronically Signed On 05-11-18 06:06:58 [employer]LECTR[employer] MOTORMAN by Jerry Bingham
[2018-05-11] MEDS: TRAMADOL HCL 50 MG TAB PO PRN (07:49)
[2018-05-11] MEDS: FAMOTIDINE 20 MG TAB PO SCH ×2 (07:50→20:18)
[2018-05-11] MEDS: ENOXAPARIN 40 MG/0.4 ML SQ SCH (07:50)
[2018-05-11] MEDS: CETIRIZINE HCL 5 MG TABLET PO SCH (07:50)
[2018-05-11] MEDS: METHYLPREDNISOLONE 125 MG INJ IV SCH ×3 (09:26→20:18)
[2018-05-11] MEDS: NACHLORIDE 0.45% 1,000 ML IV SCH ×3 (09:26→19:00)
--- NOTE | 2018-05-11 10:40 | P.PN ---
Subjective Date of Service: 05/11/18 Primary Care Provider: Dr. Parker Chief Complaint: RLQ abdominal pain, polyarthritis, myalgias Subjective: Other (Patient slightly improved. Still with right lower quadrant abdominal pain with palpation. 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 Myalgias is noted) Physical Examination - Vital Signs Temperature: 97.8 F Blood Pressure: 116/67 Pulse: 69 Respirations: 18 Pulse Ox (%): 99 - Physical Exam General: Alert, In no apparent distress, Oriented x3, Cooperative HEENT: Atraumatic Neck: Supple Respiratory: Clear to auscultation bilaterally, Normal air movement Cardiovascular: Normal pulses, Regular rate/rhythm Gastrointestinal: Normal bowel sounds, Soft and benign, Non-distended, No masses , No rebound, No guarding, Tenderness (Pain to the right lower quadrant with palpation noted.) Musculoskeletal: No warmth, Tenderness (Slight tenderness to the right pelvic region) Integumentary: Other (No rashes present. 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.) - Studies Laboratory Data (last 24 hrs) 05/10/18 14:38: PT 11.5, INR 0.97, APTT 30.3 05/10/18 14:38: WBC 13.6 H D, Hgb 13.4 L, Hct 39.6, Plt Count 339 05/10/18 14:38: Sodium 140, Potassium 4.0, BUN 13, Creatinine 1.20, Glucose 151 H, Total Bilirubin 0.3, AST 17, ALT 42, Alkaline Phosphatase 62 Medications List Reviewed: Yes Assessment & Plan Discharge Plan: Home Plan to discharge in: 24 Hours Physician Review Additional Text: Impression: Right lower quadrant abdominal pain 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 Culture sent out for GC chlamydia, Lyme antibody, Monospot and strep. Patient given doxycycline. Will discontinue doxycycline as I doubt infectious process. Await recommendations from surgery after evaluation. Continue with IV fluids. 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 Will check MRI stroke protocol. Will get neurology to evaluate patient tomorrow. Recent echocardiogram unremarkable. Will get physical therapy assess ambulation. Etiology unknown. Await recommendations by neurology. Right thigh myalgia: This seems to improve. Autoimmune workup in place. Suspect viral versus drug related. Will discuss with surgery and neurology. Migrating polyarthritis: Etiology unknown. Likely viral in nature. Patient was positive for cocaine and marijuana. There may be some relation to this. Autoimmune workup in place. Evaluation for Lyme disease, mono, parvovirus in process. Will discuss further with surgery and neurology Genital wart: This can be further addressed by urology as an outpatient. Recent blood culture positive 1/2 for gram positive rods, contaminant: This was reviewed. Contaminant noted. Will discontinue IV antibiotic therapy. Elevated ESR and CRP: Etiology unknown. Suspect viral versus drug related-THC/ cocaine verses autoimmune. Autoimmune workup in progress. Will continue with IV Solu-Medrol. Obesity: Will continue with lifestyle modification education. GERD: Continue PPI. Positive drug screen for cocaine and THC: Cessation addressed in detail. Time Spent Managing Pts Care (In Minutes): 55
[2018-05-11] MEDS: KETOROLAC 30 MG/ML INJ IV PRN ×2 (10:46→18:06)
--- NOTE | 2018-05-11 16:44 | CON ---
Date of Consultation: 05/11/2018 Brief Hpi: The patient is a 28-year-old male, who presents to the hospital yesterday after being discharged, where he was evaluated for nonspecific rash and polyarthritis initially starting i n his right knee, now to bilateral hands and forearm area. He was seen by Infectious Disease. His c ondition improved with steroids. His viral illness was suspected with inflammatory response. He had polyarteritis of the hands, knees, and feet, which resolves. His Procalcitonin and ESR were normal. Chest x-ray and echo were normal. UA was normal. Rheumatoid factor was normal. He decided to go home yesterday and was awaiting on blood culture, which is positive, but thought to be contaminant. He was sent home on prednisone, Zyrtec, and Pepcid. He returns now with right lower quadrant and jose in pain and pubic bone pain, and reports myalgias to the right thigh and still continued pain to the hands with flexion and gripping. No fever, chills, nausea, or vomiting. No diarrhea or constipation noted. No shortness of breath or chest pain. He had a group A strep test, which was negative as we ll. He had blood cultures on 05/08 on his previous admission, which showed no growth on 1 sample fro m blood, 1 sample was gram-positive rods that this was thought to be a possible contaminant. His chula opharyngeal swab for flu was negative for A and B. Past Medical History: Significant for GERD, allergic rhinitis, genital warts, and obesity. Past Surgical History: Denies. Social History: He is . Has 1 child. 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 [place] [employer] [place] and smokes a hookah with gilliantiera uana he thought and perhaps thinks it was laced with cocaine as he denies actively using cocaine in t he recent history since high school. He does admit to usage in high school, but not in many years si nce then and denies recent usage. Family History: Father has a history of heart disease and diabetes. Allergies: NO KNOWN DRUG ALLERGIES. Medications: Home medications include Zyrtec, prednisone, and Pepcid. Review of Systems: Weakness, malaise. Other than HPI, denies. Physical Examination: Vital signs: At the time of my examination, his BMI is 32.2. His blood pressure 116/67, pulse is 69 , respiratory rate 18, temperature 97.8. General: He is awake, alert, oriented. Psychiatric: He is appropriate and conversive. HEENT: Normocephalic. Sclerae anicteric. Mucous membrane moist. Oropharynx clear. Neck: Supple. No JVD. Chest: Normal expansion and excursion. Cardiovascular: Regular rate and rhythm. Pulmonary: Clear to auscultation bilaterally. Abdomen: Soft. He has pubic bone tenderness and slightly to the right of midline. There is no ingu inal component. There is no inguinal hernia appreciated. There is no vascular abnormalities appreci ated in this area. There are no rashes or lesions in this area as well. No lymphadenopathy apprecia handy. Skin: Essentially normal. He has no evidence of rash anywhere on his body. 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 Imaging Data: He had imaging performed, which included a hip x-ray, which is normal; pelvis x-ray wh ich is normal; abdomen and pelvis CT, which is normal. Laboratory Data: Reveals a white blood cell count 13.2, hemoglobin is 12.5 over hematocrit of 37.0, platelet count 301. His lymphocytes were 5.0. His ESR was 22 on admission, now it is 12. His coagu lation profile shows PT 11.5, INR 0.97, PTT 30.3. His sodium 143, potassium 4.0, chloride 111, carbo n dioxide 26, BUN 13, creatinine 1, glucose is 79. Lactic acid was normal at 1.3, AST is 11, AST 32, alkaline phosphatase is 52. Creatine kinase is 57 on admission. CK-MB and troponins were normal. C-reactive protein was 15 on admission. Procalcitonin less than 0.05. His urine was negative down t he line. Toxicology was positive for opioids, cocaine, and THC. All serologies are currently pendin g except for mono screen, which is negative. Assessment And Plan: This is a 28-year-old male, who comes in with myositis-type picture. I am unsu re if this is a viral infection from recent possible inoculation as he did have exposure to quite a f ew mosquitos while camping, perhaps a chikungunya virus infection. I recommend supportive treatment at this time. There is no surgical indication at this time. Continue supportive treatment and seria l exams to continue. NAVDEEP/WILTON Voice ID: [id number] Report ID: [id number]
--- NOTE | 2018-05-11 17:43 | RAD REPORT ---
EXAM DESCRIPTION: CT - Head Brain Wo Cont - 05/11/2018 5:16 pm CLINICAL HISTORY: Stroke-like symptoms, right upper extremity weakness COMPARISON: None. TECHNIQUE: Axial 5 mm thick images of the head were obtained without IV contrast. All CT scans are performed using dose optimization technique as appropriate and may include automated exposure control or mA/KV adjustment according to patient size. FINDINGS: No intracranial hemorrhage, mass, edema or shift of mid-line structures. No acute infarcti on changes seen. No abnormal extra-axial fluid collections. Ventricles are normal. Mastoid air cells and visualized portions of the paranasal sinuses are clear. No acute bony findings. IMPRESSION: Negative non-contrast CT head examination.
[2018-05-12] MEDS: NACHLORIDE 0.45% 1,000 ML IV SCH ×3 (03:40→20:44)
[2018-05-12 05:17] LABS: Absolute Lymphocytes (CBC) 2.1 K/uL (0.7-4.9); Absolute Monocytes 1.8 K/uL (0.1-1.3); Absolute Neutrophil 18.1 K/uL (1.8-8.0); Basophils % 0.1 % (0-1.3); Hematocrit 40.9 % (39.6-49.0); Lymphocytes % 9.5 % (15.3-44.8); MCH 29.7 pg (27.0-35.0); MCV 87.6 fL (80-100); MPV 8.3 fL (7.6-11.3); Monocytes % 8.1 % (3.3-12.3); RBC Red Blood Cell Count 4.67 M/uL (4.33-5.43)
[2018-05-12 05:30] LABS: BUN Blood Urea Nitrogen 9 mg/dL (7-18); Bicarbonate 24 mmol/L (21-32); Glucose Level 118 mg/dL (74-106); Magnesium 2.3 mg/dL (1.8-2.4); Sodium Level 141 mmol/L (136-145)
[2018-05-12 05:50] LABS: Blood Morphology Comment NOT SEEN (NOT SEEN); Platelet Estimate ADEQ; Platelets, Giant FEW
[2018-05-12] MEDS: METHYLPREDNISOLONE 125 MG INJ IV SCH (09:06)
[2018-05-12] MEDS: ENOXAPARIN 40 MG/0.4 ML SQ SCH (09:07)
[2018-05-12] MEDS: FAMOTIDINE 20 MG TAB PO SCH ×2 (09:07→20:45)
[2018-05-12] MEDS: CETIRIZINE HCL 5 MG TABLET PO SCH (09:07)
[2018-05-12] MEDS: HYDROCODONE/APAP 7.5/325 MG TAB PO PRN ×2 (09:14→20:59)
--- NOTE | 2018-05-12 10:19 | RAD REPORT ---
EXAM DESCRIPTION: MRI - Brain W/Wo Cont - 05/12/2018 9:13 am CLINICAL HISTORY: Bilateral extremity numbness and weakness COMPARISON: May 11, [address] TECHNIQUE: Axial, sagittal, and coronal magnetic images of the brain were obtained. 20 cc MultiHance administered intravenously FINDINGS: 5 millimeter area of increased signal is present within the right cerebellum which does no t enhance. It likely is chronic and could indicate an old lacunar infarction. Diffusion-weighted/ADC mapping does not reveal evidence of acute infarction. The ventricles are normal caliber. An extra-axial fluid collection is not present no abnormal enhancement is displayed. The sinuses and mastoids are clear. IMPRESSION: No acute abnormality displayed
--- NOTE | 2018-05-12 10:24 | RAD REPORT ---
EXAM DESCRIPTION: MRI - MRA Neck W/Wo Cont - 05/12/2018 9:13 am CLINICAL HISTORY: Bilateral extremity numbness COMPARISON: None. TECHNIQUE: Magnetic resonance angiogram of the neck was performed. 20 cc MultiHance was administered intravenously. 3D reconstruction performed FINDINGS: The common carotid, internal carotid and external carotid arteries do not demonstrate a si gnificant stenosis. An aneurysm is not seen. The vertebral arteries are codominant without visualization of an abnormality. IMPRESSION: Unremarkable MRA neck
--- NOTE | 2018-05-12 10:25 | RAD REPORT ---
EXAM DESCRIPTION: MRI - MRA Head Wo Cont - 05/12/2018 9:12 am CLINICAL HISTORY: Bilateral extremity numbness COMPARISON: None. TECHNIQUE: Magnetic resonance angiogram of the head was performed. 3D MIPS reconstruction performed FINDINGS: The visualized anterior cerebral, middle cerebral, posterior cerebral, basilar and distal internal carotid arteries do not demonstrate a significant stenosis. origin right posterior cer ebral artery An aneurysm is not seen IMPRESSION: Unremarkable MRA head
--- NOTE | 2018-05-12 11:15 | P.PN ---
Subjective Date of Service: 05/12/18 Primary Care Provider: Dr. Parker Chief Complaint: RLQ abdominal pain, polyarthritis, myalgias Subjective: Improving Physical Examination - Vital Signs Temperature: 98.1 F Blood Pressure: 120/69 Pulse: 80 Respirations: 16 Pulse Ox (%): 98 - Physical Exam General: Alert, In no apparent distress, Cooperative HEENT: Atraumatic Neck: Supple Respiratory: Clear to auscultation bilaterally, Normal air movement Cardiovascular: Normal pulses, Regular rate/rhythm Gastrointestinal: Normal bowel sounds, Soft and benign, Non-distended, No masses , No rebound, No guarding, Other (No significant pain to the abdomen to the right lower quadrant noted.) Musculoskeletal: No erythema, No tenderness, No warmth Integumentary: No tenderness/swelling, No erythema, No warmth, No cyanosis Neurological: Normal speech, Normal strength at 5/5 x4 extr, Normal tone, Normal affect, Other (Patient reports good strength throughout. 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 Culture sent out for GC chlamydia, Lyme antibody, Monospot and strep. Await culture results. Surgery has evaluated patient. No intervention required. Possible discharge later today. Right upper extremity weakness, mainly with machine operator picker: This has improved. MRI stroke protocol shows no acute findings. There is a 5 mm area of increased signal within the right cerebellum which does not enhance. This appears chronic. This could be in old lacunar infarct. Neurology consulted to further assess. Still suspect viral etiology. Possible discharge later today. Right thigh myalgia: This seems to improve. Autoimmune workup in place. Still suspect viral etiology verses drug related. Patient may have chikungunya viral infection, as he was camping recently. Will discuss with Neurology. Migrating polyarthritis: Etiology unknown. Likely viral in nature. Patient was positive for cocaine and marijuana. This may factor into this. Genital wart: This can be further addressed by urology as an outpatient. Recent blood culture positive 2 for gram positive rods, contaminant: This was reviewed. Contaminant noted. Will discontinue IV antibiotic therapy. Elevated ESR and CRP: Etiology unknown. Suspect viral versus drug related-THC/ cocaine verses autoimmune. Autoimmune workup in progress. Will transition to oral steroids. Will discuss with Neurology. Possible discharge later today. Obesity: Will continue with lifestyle modification education. GERD: Continue PPI. Positive drug screen for cocaine and THC: Cessation addressed in detail. Time Spent Managing Pts Care (In Minutes): 55
--- NOTE | 2018-05-12 15:23 | EKG ---
Test Date: 2018-05-10 Test Time: 20:18:02 Immigration Attorney: RT-O MEASUREMENT RESULTS: Intervals: Rate: 74 NC: 144 QRSD: 106 QT: 366 QTc: 406 [place]: P: 54 NC: 144 QRS: 37 T: 44 INTERPRETIVE STATEMENTS: Normal sinus rhythm Incomplete right bundle branch block Borderline ECG Compared to ECG 05/10/2018 15:13:20 Incomplete right bundle-branch block now present Electronically Signed On 05-12-18 15:23:12 NURSING RESIDENT by Jerry Bingham
[2018-05-12] MEDS: DOXYCYCLINE 100 MG CAP PO SCH (20:45)
[2018-05-12] MEDS: predniSONE 20 MG TAB PO SCH (20:45)
[2018-05-12] MEDS ORDERED: ATORVASTATIN 40 MG TAB PO SCH (21:00)
--- NOTE | 2018-05-12 23:54 | CON ---
Consultation called because of a possible stroke. History Of Present Illness: Mr. Vance is a 28-year-old right-handed patient with past m edical history of gastroesophageal reflux disease, who comes in to the hospital with diffuse migratin g rash in the legs and arms along with myalgias, abdominal pain, and some diffuse weakness. He said [facility], where he was exposed to mosquito bit es, he was actually sitting on the grass for an extended period of time, and following that has been developed symptoms. He was initially seen at [facility] on the 08 of May and was sent home with polyarthritis type myalgias due to possible viral infection. He was given steroids, which seemed to improve his symptoms, but then his symptoms return involving the rash on his hands, knees, feet, and back and that began to spread but then resolved in the various areas. At the [facility], his blood work was negative for procalcitonin showing no infection. Sedimentation rate was normal. Chest x-ray, echocardiogram, urinalysis all normal. Rheumatoid factor all normal. Blood cu ltures though were contaminated. He was evaluated by Surgery Service for right lower quadrant pain a nd was found to have no acute abdomen or any need for surgical intervention. His head CT scan done o n the 11 of May, he was negative for any abnormalities. His brain MRI with MRA was remarkable for a chronic 5-mm right cerebellar stroke. MRA of brain and neck were unremarkable. Echocardiogram was not done. The patient's drug screen did show a positive for cocaine and marijuana along with opiates. Today, h is white blood cell count did shoot up to 22.0 from 13.2, and it should be noted that he was placed o n doxycycline for possible Lyme disease along with prednisone 20 mg twice daily. His rash has largely resolved over the body, except elevated on his neck and right forehead. Past Medical History: As indicated above, gastroesophageal reflux disease, allergic rhinitis, genita l warts and obesity. Allergies: NO KNOWN DRUG ALLERGIES. Medications: At home, Zyrtec 10 mg daily, Pepcid 20 mg twice daily, and now prednisone 20 mg daily. Family History: Positive for heart disease, diabetes in father. Social History: He does admit to using marijuana and there is also cocaine and he has been on opiate s as well and alcohol. Denies cigarette smoking. The patient is . Works in a [employer]. Has 1 child. Past Surgical History: None. Review of Systems: Constitutional: He denies any recent fevers or chills. Positive for the malaise, diffuse weakness, rash as indicated, some myalgias. Otherwise, his head, eyes, ears, nose, and throat unremarkable. Cardiovascular System: Unremarkable. Gastrointestinal System: Abdominal pain, which is resolving. Genitourinary System: No dysuria, pyuria. Musculoskeletal System: Diffuse weakness as indicated. Neurological Examination: Again no focal deficits. Lymphatic Examination: Unremarkable. Physical Examination: Vital Signs: Blood pressure 127/76, pulse 68, respiratory rate 18, temperature 98, ox saturation 96% , weight 237 pounds, height 60, BMI 32.2. General: Mr. Vance is resting comfortably in bed. He is in no acute distress. He is normocephal ic, atraumatic. He has a mild resolving rash on the right forehead, appeared to be streaks about 2 t o 5 mm wide and about 4 to 5 cm long, but 3 areas on the right forehead and some on the left elbow, o therwise, no rashes. He does have some small petechial areas where he says there were insect bites a round his ankles, otherwise, no rash. Chest: Clear. Heart: Regular. Abdomen: Soft. Extremities: Showed no edema, cyanosis, or clubbing. Neurological: He is alert and oriented to person, place, time, and situation. He has no expressive or receptive aphasias. Cranial nerves 2 through 12 are intact by exam. Motor examination, he has no rmal bulk and tone in the arms and legs, 5/5 strength proximally and distally. Sensory examination i ntact in upper and lower extremities. His gait good stance, right arm swing. Reflexes are 2+ in upp er and lower extremities and coordination is intact in the upper and lower extremities. Laboratory Studies: White blood cell count 22.0 with 82.2% neutrophils, hemoglobin 13.9, hematocrit 40.9, and his INR 0.97. Chemistries: Sodium 141, potassium 4.0, chloride 99, carbon dioxide 24, BUN 9, creatinine 0.9, glucose 118, calcium 8.8, magnesium 2.3. Procalcitonin less than 0.05. Urinalys is is unremarkable. Urine toxicology is as indicated, opiates positive, cocaine positive, marijuana positive. He does have testing for Lyme disease. Trichomoniasis is pending. [place] screen is negativ e. HIV is pending. Antistreptolysin is pending and gonorrhea. His testing is also pending. Assessment: Mr. Vance is a 28-year-old possible Lyme disease. Denies any obvious tick bites, but may be possible as he was sitting in grass. He has no focal neurological deficits. He does have a chronic stroke and he does use drugs including marijuana, cocaine, and opiates. Plan: 1.The patient was strongly instructed to stop using cocaine, marijuana, and opiates. 2.Take an aspirin 81 mg daily, given his chronic stroke. 3.The patient is to hydrate with 8 to 10 glasses of water daily. 4.He should be treated for full 28 days with doxycycline for possible Lyme disease. 5.After discharge, he should follow up with Dr. Chawla in clinic in 1 month and all of the pending outstanding studies will be followed up on. TAMMIE Voice ID: [id number] Report ID: [id number]
[2018-05-13 01:39] VITALS: O2SAT 97
[2018-05-13 05:14] LABS: Absolute Lymphocytes (CBC) 2.3 K/uL (0.7-4.9); Absolute Neutrophil 11.1 K/uL (1.8-8.0); Basophils % 0.2 % (0-1.3); Eosinophils % 0.1 % (0-4.4); Hematocrit 37.6 % (39.6-49.0); Lymphocytes % 15.9 % (15.3-44.8); MCH 30.9 pg (27.0-35.0); MCV 87.6 fL (80-100); MPV 9.1 fL (7.6-11.3); Monocytes % 6.9 % (3.3-12.3); RBC Red Blood Cell Count 4.29 M/uL (4.33-5.43)
[2018-05-13 05:32] LABS: Potassium 4.3 mmol/L (3.5-5.1)
[2018-05-13] MEDS ORDERED: ASPIRIN EC 81 MG TAB PO SCH (09:00)
[2018-05-13] MEDS: DOXYCYCLINE 100 MG CAP PO SCH (09:07)
[2018-05-13] MEDS: TRAMADOL HCL 50 MG TAB PO PRN (09:08)
[2018-05-13] MEDS: FAMOTIDINE 20 MG TAB PO SCH (09:08)
[2018-05-13] MEDS: CETIRIZINE HCL 5 MG TABLET PO SCH (09:08)
[2018-05-13] MEDS: ENOXAPARIN 40 MG/0.4 ML SQ SCH (09:09)
[2018-05-13] MEDS: predniSONE 20 MG TAB PO SCH (09:09)
[2018-05-13] MEDS: KETOROLAC 30 MG/ML INJ IV PRN (09:41)
--- NOTE | 2018-05-13 09:52 | P.DS ---
Admission Date: 05/10/18 Discharge Date: 05/13/18 Primary Care Provider: Dr. Parker Disposition: ROUTINE DISCHARGE Discharge Condition: GOOD Reason for Admission: RLQ abdominal pain, polyarthritis, myalgias Consultations: Neurology-Dr. Chawla Surgery-Dr. Hinojosa Procedures: CT scan: COMPARISON: none. TECHNIQUE: Computed axial tomography of the abdomen pelvis was obtained. 100 cc Isovue-300 was administered intravenously. Oral contrast was not requested which limits evaluation of bowel. All CT scans are performed using dose optimization technique as appropriate and may include automated exposure control or mA/KV adjustment according to patient size. FINDINGS: The liver, spleen, pancreas, adrenal and kidneys appear unremarkable. There is no evidence of diverticulitis. The appendix is normal 1 IMPRESSION: No acute abnormality is displayed. MRI Brain: COMPARISON: May 11, [address] TECHNIQUE: Axial, sagittal, and coronal magnetic images of the brain were obtained. 20 cc MultiHance administered intravenously FINDINGS: 5 millimeter area of increased signal is present within the right cerebellum which does not enhance. It likely is chronic and could indicate an old lacunar infarction. Diffusion-weighted/ADC mapping does not reveal evidence of acute infarction. The ventricles are normal caliber. An extra-axial fluid collection is not present no abnormal enhancement is displayed. The sinuses and mastoids are clear. IMPRESSION: No acute abnormality displayed MRI/MRA Brain: COMPARISON: None. TECHNIQUE: Magnetic resonance angiogram of the head was performed. 3D MIPS reconstruction performed FINDINGS: The visualized anterior cerebral, middle cerebral, posterior cerebral , basilar and distal internal carotid arteries do not demonstrate a significant stenosis. origin right posterior cerebral artery An aneurysm is not seen IMPRESSION: Unremarkable MRA head MRA Neck: COMPARISON: None. TECHNIQUE: Magnetic resonance angiogram of the neck was performed. 20 cc MultiHance was administered intravenously. 3D reconstruction performed FINDINGS: The common carotid, internal carotid and external carotid arteries do not demonstrate a significant stenosis. An aneurysm is not seen. The vertebral arteries are codominant without visualization of an abnormality. 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 Migrating polyarthritis Genital wart Recent blood culture positive 1/2 for gram positive rods, contaminant Elevated ESR and CRP Obesity, BMI 32.2 GERD Positive drug screen for cocaine and THC Brief History of Present Illness: 28 yo CM who was discharged yesterday after he was evaluated for a nonspecific rash and polyarthritis. He was seen by Infectious disease. His condition improved with steroids. Viral illness was suspected with inflammatory response. His polyarthritis to the hands, knee and feet resolved. His Procalcitonin, ESR were normal. His CXR and ECHO was also normal. UA was normal as well. Rheumatoid factor was also normal. He desired to go home yesterday while waiting on blood culture which was positive but thought to have been a contaminant. His symptoms have resolved. He was sent home with Prednisone, Zyrtec and Pepcid. Today he reported RLQ abdominal pain with radiation of pain to the right groin region. He also reported some myalgias mainly to the right thigh. He has some mild pain to the joints of the hands. No fever, chills, nausea or vomiting was noted. No diarrhea or constipation was noted. No SOB or chest pain. He was evaluated in the ER which included CT scan of the AB/Pelvis, x-rays of the Hip and Pelvis. All were normal. His WBC count was improved from his recent hospitalization. His ESR was increased from before. His CRP improved. Due to the unusual symptoms, he will be admitted for further evaluation. 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 Differential included viral infection, parasitic infection, Lyme disease, autoimmune disease, and drug related. Multiple tests included CT scan abdomen which was unremarkable for appendicitis. MRI brain showed no acute stroke but 5 mm area within the right cerebellum likely indicated old left lacunar infarct. Patient evaluated by neurology and surgery. No surgical intervention was required. Blood cultures negative. Lab sent out for Lyme disease, parvo virus, GC chlamydia, HIV, and autoimmune workup. Multiple tests unremarkable at this time. Patient has improved. No more significant weakness, abdominal pain or arthritis/myalgias. Patient was positive for cocaine, marijuana and opiates. Patient recently went camping. Lyme disease is considered. The patient received IV doxycycline in the hospital. At discharge recommendation is to continue with aspirin 81 mg daily given his prior stroke. No need for statin medication due to normal lipid panel. Patient will continue with prednisone as he is had good response. Patient given prednisone on prior hospitalization. He will continue to finish prednisone as outpatient. Due to the possibility of Lyme disease, patient will be discharged with doxycycline 100 mg 1 pill twice daily for 28 days. Recommendation is for the patient to follow up with neurology in 1 to follow up antibody test for Lyme disease, parvovirus, HIV. Patient will follow up with his PCP to follow up other tests. Education on cocaine/THC and opiate cessation addressed in detail. Patient remains committed to cessation. Patient was found to have a genital wart in his general region. Recommendation for the patient follow up with urology to further evaluate and treat. Patient with GERD. Patient may continue with Pepcid 20 mg 1 pill twice daily. Patient will need to continue to hydrate and have good oral intake. Vital Signs/Physical Exam: Temp Pulse Resp BP Pulse Ox 97.1 F 60 18 107/60 97 05/13/18 04:00 05/13/18 04:00 05/13/18 04:00 05/13/18 04:00 05/13/18 04:00 General: Alert, In no apparent distress, Oriented x3, Cooperative HEENT: Atraumatic, Mucous membr. moist/pink Neck: Supple, No Thyromegaly Respiratory: Clear to auscultation bilaterally, Normal air movement Cardiovascular: Normal pulses, Regular rate/rhythm Gastrointestinal: Normal bowel sounds, Soft and benign, Non-distended, No tenderness, No masses, No rebound, No guarding Musculoskeletal: No erythema, No tenderness, No warmth Integumentary: No tenderness/swelling, No erythema, No warmth, No cyanosis Neurological: Normal speech, Normal strength at 5/5 x4 extr, Normal tone, Normal affect Laboratory Data at Discharge: WBC 14.5 K/uL (4.3-10.9) H D 05/13/18 04:28 Hgb 13.3 g/dL (13.6-17.9) L 05/13/18 04:28 Hct 37.6 % (39.6-49.0) L 05/13/18 04:28 Plt Count 327 K/uL (152-406) 05/13/18 04:28 PT 11.5 SECONDS (9.5-12.5) 05/10/18 14:38 INR 0.97 05/10/18 14:38 APTT 30.3 SECONDS (24.3-36.9) 05/10/18 14:38 Sodium 142 mmol/L (136-145) 05/13/18 04:28 Potassium 4.3 mmol/L (3.5-5.1) 05/13/18 04:28 BUN 14 mg/dL (7-18) 05/13/18 04:28 Creatinine 1.00 mg/dL (0.55-1.3) 05/13/18 04:28 Glucose 114 mg/dL (74-106) H 05/13/18 04:28 Magnesium 2.0 mg/dL (1.8-2.4) 05/13/18 04:28 Total Bilirubin 0.2 mg/dL (0.2-1.0) 05/11/18 04:30 AST 11 U/L (15-37) L 05/11/18 04:30 ALT 32 U/L (12-78) 05/11/18 04:30 Alkaline Phosphatase 52 U/L (45-117) 05/11/18 04:30 Triglycerides 63 mg/dL (<150) 05/13/18 04:28 Cholesterol 116 mg/dL (<200) 05/13/18 04:28 HDL Cholesterol 49 mg/dL (40-60) 05/13/18 04:28 Cholesterol/HDL Ratio 2.37 05/13/18 04:28 Home Medications: Cetirizine HCl [Zyrtec] 10 mg PO DAILY #30 tablet 05/09/18 Famotidine [Pepcid*] 20 mg PO BID #60 tab 05/09/18 predniSONE [Prednisone*] 20 mg PO BID 05/10/18 Aspirin [Aspirin EC 81 MG] 81 mg PO DAILY #90 tablet. 05/13/18 Doxycycline Hyclate 100 mg PO BID #56 tablet 05/13/18 New Medications: Aspirin [Aspirin EC 81 MG] 81 mg PO DAILY #90 tablet. Doxycycline Hyclate 100 mg PO BID #56 tablet Patient Discharge Instructions: 1. Patient will need a follow up with PCP in 1 week to follow up this hospitalization. 2. 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 Differential included viral infection, parasitic infection, Lyme disease, autoimmune disease, and drug related. Multiple tests included CT scan abdomen which was unremarkable for appendicitis. MRI brain showed no acute stroke but 5 mm area within the right cerebellum likely indicated old left lacunar infarct. Patient evaluated by neurology and surgery. No surgical intervention was required. Blood cultures negative. Lab sent out for Lyme disease, parvo virus, GC chlamydia, HIV, and autoimmune workup. Multiple tests unremarkable at this time. Patient has improved. No more significant weakness , abdominal pain or arthritis/myalgias. Patient was positive for cocaine, marijuana and opiates. Patient recently went camping. Lyme disease is considered. The patient received IV doxycycline in the hospital. At discharge recommendation is to continue with aspirin 81 mg daily given his prior stroke. No need for statin medication due to normal lipid panel. Patient will continue with prednisone as he is had good response. Patient given prednisone on prior hospitalization. He will continue to finish prednisone as outpatient. Due to the possibility of Lyme disease, patient will be discharged with doxycycline 100 mg 1 pill twice daily for 28 days. Recommendation is for the patient to follow up with neurology in 1 to follow up antibody test for Lyme disease, parvovirus, HIV. Patient will follow up with his PCP to follow up other tests. Education on cocaine/THC and opiate cessation addressed in detail. Patient remains committed to cessation. Patient may use ibuprofen over the counter as needed for pain. 3. Patient was found to have a genital wart in his general region. Recommendation for the patient follow up with urology to further evaluate and treat. 4. Patient with GERD. Patient may continue with Pepcid 20 mg 1 pill twice daily. 5. Patient has seasonal allergies. Patient may continue with Zyrtec 10 mg daily. 6. Patient will need to continue to hydrate and have good oral intake. Diet: AHA Activity: Ad vanessa Time spent managing pt's care (in minutes): 55
[2018-05-13 14:42] VITALS: BP 132/64; TEMP 97.9
[2018-05-13 18:27] LABS: C.trachomatis RNA,TMA Not Detected (Not Detected)
[2018-05-14 09:37] LABS: HIV 1/2 Antibody Diff Not indicated.; HIV AG/AB 4TH GEN Non-reactive (Non-reactive)
== END 2018-05-13 12:23 | disposition home or self-care (01) ==
LOC: ER 13:07 → ERHOLD 17:53 → 2ND 19:33
PROVIDERS: ADMIT Family Medicine; ATTEND Family Medicine
DX: R10.31 Right lower quadrant pain (principal); R53.1 Weakness; A63.0 Anogenital (venereal) warts; M13.0 Polyarthritis, unspecified; R21 Rash and other nonspecific skin eruption; F12.90 Cannabis use, unspecified, uncomplicated; F14.90 Cocaine use, unspecified, uncomplicated; F11.90 Opioid use, unspecified, uncomplicated; E66.9 Obesity, unspecified; Z68.32 Body mass index [BMI] 32.0-32.9, adult
CPT/HCPCS: 36415; 70450; 70544; 70549; 70553; 72170; 74177; 80048; 80053; 80061; 80076; 80307; 81003; 81015; 82550; 82553; 83605; 83735; 84145; 84484; 85025; 85610; 85652; 85730; 86060; 86140; 86308; 86618; 87040; 87070; 87081; 87086; 87088; 87389; 87490; 87590; 93005; 97163; 99285; A9577; G0378; J1650; J2405; J2930; J7030; J7512; Q9967